=== PATIENT | female | born 1945 | race Caucasian/White ===

== ENCOUNTER 2020-09-21 09:14 | Emergency (ER) | payer MEDICARE, SELFPAY ==
[2020-09-21 09:25] VITALS: BP 146/81; PULSE 101; RESP 18; TEMP 36.5; O2SAT 95; BMI 28.8
--- NOTE | 2020-09-21 09:44 | ED.ABDPAIN ---
HPI - Abdominal Pain General Chief Complaint: Abdominal Pain Stated Complaint: abd pain Time Seen by Provider: 09/21/20 09:44 Source: patient Mode of arrival: ambulatory Limitations: no limitations History of Present Illness HPI narrative: patient with no significant past abdominal history no surgery in the past been having upper abdominal pain for last few months which is getting worse especially for last 3 4 days seen her PCP who started her on Protonix scheduled for ultrasound for last 24 hours pain is getting worse not able ED MD elicited complaint: abdominal pain Pertinent past history: none Onset (ago): month(s) Pain Consistency: intermittent Location: epigastric and RUQ Severity: moderate Quality: sharp Radiation: RUQ Exacerbating factors: eating Relieving factors: nothing Associated symptoms: nausea Related Data Previous Rx's Medication Instructions Recorded oxycodone 5 mg PO Q6H PRN #20 tab 09/21/20 Allergies Allergy/AdvReac Type Severity Reaction Status Date / Time No Known Allergies Allergy Verified 09/21/20 09:24 Review of Systems Review of Systems REVIEW OF SYSTEMS: Pertinent positives and negatives are stated above in the history. GEN: no fevers, chills, fatigue HEENT: no nasal congestion, sore throat, ear pain NEURO: no headache, dizziness, focal weakness PULM: no cough, shortness of breath CV: no chest pain, palpitations, LE edema ABD: no vomiting, diarrhea : no dysuria, urgency, frequency SKIN: no rash ROS otherwise negative x 10 Physical Exam Vital Signs: Vital Signs: Last Vital Signs Temp 97.7 F 09/21/20 14:00 Pulse 89 09/21/20 14:00 Resp 18 09/21/20 14:00 BP 133/62 09/21/20 14:00 Pulse Ox 99 09/21/20 14:00 Body Mass Index 28.8 Appearance: Alert. Oriented X3. No acute distress. Eyes: Pupils equal, round and reactive to light. ENT: Pharynx normal. Neck: Normal inspection. Neck supple. CVS: Normal heart rate and rhythm. Pulses normal. Respiratory: No respiratory distress. Breath sounds normal. Abdomen: Soft , tender in epigastric and right upper quadrant, bowel sounds are present no rebound tenderness or guarding no hernia palpable Skin: Skin warm and dry. Normal skin color. Normal skin turgor. Extremities: No lower extremity edema. Good range of movement Neuro: Oriented X 3. No motor deficit. No sensory deficit. Course Course Course Narrative: Patient labs are stable ultrasound is negative she never had any symptoms of gastritis in the past will do a CT scan to rule out any mass/pancreatic mass Reevaluation(s) Reevaluation #1: Patient's CT scan showed pancreatic mass with metastasis to liver. Patient advised to follow-up with oncologist MDM - Abdominal Pain MDM Narrative Medical decision making narrative: Patient with upper abdominal pain for last few months positive gastritis pancreatitis and gallstone was considered will do the ultrasound Differential Diagnosis Differential diagnosis: Likely pancreatitis and peptic ulcer disease Medical Records Attestation: I reviewed the patient's medical records. Lab Data Attestation: I reviewed the patient's lab results. Result diagrams: 09/21/20 10:10 09/21/20 10:10 Labs: Lab Results 09/21/20 09/21/20 09/21/20 Range/Units 10:10 10:10 10:10 WBC 6.1 (4.8-10.8) X10*3/uL RBC 4.59 (4.20-5.50) X10*6/uL Hgb 12.7 (12.0-16.0) g/dl Hct 38.7 (37-47) % MCV 84.3 (80-98) fL MCH 27.7 (27.0-33.0) pg MCHC 32.8 (31.0-35.0) g/dl RDW 11.9 (11.0-16.0) % Plt Count 212 (160-400) X10*3/uL MPV 9.4 (9.4-12.3) fL Immature Gran % (Auto) 0.3 (0.0-0.4) % Neut % (Auto) 73.8 H (45-73) % Lymph % (Auto) 12.9 L (20-40) % [place] % (Auto) 11.7 H (2-11) % Eos % (Auto) 1.0 (0-4) % Baso % (Auto) 0.3 (0-2) % Lymph # (Auto) 0.8 L (1.2-4.9) X10*3/uL [place] # (Auto) 0.7 (0.1-1.2) X10*3/uL Eos # (Auto) 0.1 (0.0-0.4) X10*3/uL Baso # (Auto) 0.0 (0.0-0.2) X10*3/uL Abs Immat Gran (auto) 0.02 (0.00-0.03) X10*3/uL Absolute Neuts (auto) 4.5 (2.0-8.3) X10*3/uL Absolute Nucleated RBC 0.000 (0.0-0.012) X10*3/uL Nucleated RBC % (auto) 0.0 (0.0-0.2) /100WBC PT 14.5 H (10.8-13.0) SEC INR 1.2 H (0.9-1.1) Sodium 136 (135-145) mmol/L Potassium 3.8 (3.3-5.1) mmol/l Chloride 100 (96-108) mmol/L Carbon Dioxide 26 (22-29) mmol/L Anion Gap 14 (12-20) BUN 13 (9-16) mg/dL Creatinine 0.76 (0.5-1.4) mg/dL Estim Creat Clear Calc 78.1 Estimated GFR > 60 Random Glucose 116 H (60-115) mg/dL Calcium 8.9 (8.4-10.2) mg/dL Total Bilirubin 0.7 (0.0-1.0) mg/dL AST 23 (5-31) U/L ALT 23 (0-31) U/L Alkaline Phosphatase 152 H (39-117) U/L Total Protein 6.8 (6.5-8.0) g/dL Albumin 3.6 (3.5-5.0) g/dL Lipase 14 (8-78) U/L Urine Color Urine Appearance Urine pH (5.0-8.0) Ur Specific [place] (1.005-1.025) Urine Protein (NEG-TRACE) MG/DL Urine Glucose (UA) (NEG) MG/DL Urine Ketones (NEG) MG/DL Urine Blood (NEG) Urine Nitrite (NEG) Ur Leukocyte Esterase (NEG) Urine RBC (0) /HPF Urine WBC (0-4) /HPF Ur Squamous Epith Cells /LPF Urine Bacteria /LPF Urine Mucus /LPF 09/21/20 Range/Units 10:10 WBC (4.8-10.8) X10*3/uL RBC (4.20-5.50) X10*6/uL Hgb (12.0-16.0) g/dl Hct (37-47) % MCV (80-98) fL MCH (27.0-33.0) pg MCHC (31.0-35.0) g/dl RDW (11.0-16.0) % Plt Count (160-400) X10*3/uL MPV (9.4-12.3) fL Immature Gran % (Auto) (0.0-0.4) % Neut % (Auto) (45-73) % Lymph % (Auto) (20-40) % [place] % (Auto) (2-11) % Eos % (Auto) (0-4) % Baso % (Auto) (0-2) % Lymph # (Auto) (1.2-4.9) X10*3/uL [place] # (Auto) (0.1-1.2) X10*3/uL Eos # (Auto) (0.0-0.4) X10*3/uL Baso # (Auto) (0.0-0.2) X10*3/uL Abs Immat Gran (auto) (0.00-0.03) X10*3/uL Absolute Neuts (auto) (2.0-8.3) X10*3/uL Absolute Nucleated RBC (0.0-0.012) X10*3/uL Nucleated RBC % (auto) (0.0-0.2) /100WBC PT (10.8-13.0) SEC INR (0.9-1.1) Sodium (135-145) mmol/L Potassium (3.3-5.1) mmol/l Chloride (96-108) mmol/L Carbon Dioxide (22-29) mmol/L Anion Gap (12-20) BUN (9-16) mg/dL Creatinine (0.5-1.4) mg/dL Estim Creat Clear Calc Estimated GFR Random Glucose (60-115) mg/dL Calcium (8.4-10.2) mg/dL Total Bilirubin (0.0-1.0) mg/dL AST (5-31) U/L ALT (0-31) U/L Alkaline Phosphatase (39-117) U/L Total Protein (6.5-8.0) g/dL Albumin (3.5-5.0) g/dL Lipase (8-78) U/L Urine Color YELLOW Urine Appearance HAZY Urine pH 5.5 (5.0-8.0) Ur Specific [place] >= 1.030 H (1.005-1.025) Urine Protein NEG (NEG-TRACE) MG/DL Urine Glucose (UA) NEG (NEG) MG/DL Urine Ketones 40 (NEG) MG/DL Urine Blood TRACE (NEG) Urine Nitrite NEG (NEG) Ur Leukocyte Esterase NEG (NEG) Urine RBC 0-2 (0) /HPF Urine WBC 0-2 (0-4) /HPF Ur Squamous Epith Cells 1+ /LPF Urine Bacteria NONE /LPF Urine Mucus 2+ /LPF Discharge Plan Discharge Clinical Impression: Cancer Patient Disposition: Home, Self-Care Instructions: Pancreatic Cancer (DC) Additional Instructions: Drink plenty of fluids, pain meds as adv and follow-up with oncologist Prescriptions: New oxycodone 5 mg tablet 5 mg PO Q6H PRN (Reason: pain) Qty: 20 RF: 0 Referrals: Georges Hillman MD [Physician] - 2 days Interventions: ED Discharge Assessment Last Done: 09/21/20 14:25 Discharge Date/Time: 09/21/20 14:26 [facility] Past Medical History Medical History Hyperlipemia Social History Social History Smoking Status: Never smoker Use of substances other than those prescribed or required for medical reasons: No Advance Directives: No Advance Directives Information Provided: No
--- NOTE | 2020-09-21 09:51 | US_ITS ---
EXAMINATION: US ABDOMEN LIMITED CLINICAL INFORMATION: Right upper quadrant pain. Question cholelithiasis.. COMPARISON: None TECHNIQUE: Real-time imaging of the right upper quadrant abdominal viscera. Examination limited secondary to overlying bowel gas. FINDINGS: PANCREAS: A majority of the pancreas is obscured by overlying bowel gas and therefore the pancreas is not accurately evaluated. LIVER: The liver is normal in size. The liver contour is normal. Parenchymal echogenicity is heterogeneous and there are a few suspected ill-defined and poorly visualized lesions within the liver, the largest measuring approximately 3 cm. There is no gross intrahepatic biliary duct dilatation seen. GALLBLADDER: Normal. The gallbladder is physiologically distended without evidence of stones, sludge, polyps, wall thickening or pericholecystic fluid. COMMON BILE DUCT: Normal in caliber measuring 0.8 cm in diameter. RIGHT KIDNEY: Normal. No hydronephrosis. No renal calculi or focal parenchymal lesions. The kidney measures 10.5 cm in maximum dimension. FREE FLUID: None. US/US abdomen limited IMPRESSION: -Examination limited secondary to overlying bowel gas. -Unremarkable sonographic imaging of the gallbladder. -Evaluation of the liver is suboptimal, however, there does appear to be a few focal heterogeneous masses superimposed upon heterogeneous background liver tissue. Further evaluation with MRI imaging without and with gadolinium is recommended to further evaluate these masses.
[2020-09-21] MEDS: 0.9 % Sodium Chloride 1,000 ML 999 ML IVCONT (10:18)
[2020-09-21] MEDS: Famotidine/PF 20 MG/2 ML VIAL IVPUSH (10:18)
[2020-09-21 10:24] LABS: Basophils Percent Auto 0.3 % (0-2); Eosinophils Absolute Auto 0.1 X10*3/uL (0.0-0.4); Hematocrit 38.7 % (37-47); Hemoglobin 12.7 g/dl (12.0-16.0); Imm Gran Abs Auto 0.02 X10*3/uL (0.00-0.03); Imm Gran Pct Auto 0.3 % (0.0-0.4); Lymphocytes Absolute Auto 0.8 X10*3/uL (1.2-4.9); Lymphocytes Percent Auto 12.9 % (20-40); MANUAL DIFF FLAG NO; Mean Corpuscular HGB Conc 32.8 g/dl (31.0-35.0); Mean Corpuscular Hemoglobin 27.7 pg (27.0-33.0); Mean Corpuscular Volume 84.3 fL (80-98); Mean Platelet Volume 9.4 fL (9.4-12.3); Monocytes Absolute Auto 0.7 X10*3/uL (0.1-1.2); Monocytes Percent Auto 11.7 % (2-11); Neutrophils Absolute Auto 4.5 X10*3/uL (2.0-8.3); Neutrophils Percent Auto 73.8 % (45-73); Platelet Count 212 X10*3/uL (160-400); Red Blood Count 4.59 X10*6/uL (4.20-5.50); Red Cell Distribution Width 11.9 % (11.0-16.0); White Blood Count 6.1 X10*3/uL (4.8-10.8)
[2020-09-21 10:30] LABS: Glucose Urine UA NEG (NEG); INTERNATIONAL NORM RATIO 1.2 (0.9-1.1); Leukocyte Esterase Urine NEG (NEG); Nitrite Urine NEG (NEG); PH 5.5 (5.0-8.0); Prothrombin Time 14.5 SEC (10.8-13.0); Specific Gravity - Urine >= 1.030 (1.005-1.025); Urine Blood TRACE (NEG); Urine Ketones 40 MG/DL (NEG); Urine Protein NEG (NEG-TRACE)
[2020-09-21 10:32] LABS: Appearance Urine HAZY; Color Urine YELLOW
[2020-09-21 10:59] LABS: Alanine Aminotransferase 23 U/L (0-31); Albumin Level 3.6 g/dL (3.5-5.0); Alkaline Phosphatase 152 U/L (39-117); Anion Gap 14 (12-20); Aspartate Amino Transferase 23 U/L (5-31); Bilirubin Total 0.7 mg/dL (0.0-1.0); Blood Urea Nitrogen 13 mg/dL (9-16); Calcium 8.9 mg/dL (8.4-10.2); Carbon Dioxide 26 mmol/L (22-29); Chloride 100 mmol/L (96-108); Creatinine Clr Calc Pharmacy 78.1; Estimated Glomerular Filt Rate > 60; Glucose Random 116 mg/dL (60-115); Lipase 14 U/L (8-78); Potassium 3.8 mmol/l (3.3-5.1); Sodium 136 mmol/L (135-145); Total Protein 6.8 g/dL (6.5-8.0)
[2020-09-21 11:01] LABS: Mucus Urine 2+ /LPF; RBC Urine 0-2 /HPF (0); Squamous Epithelial Cell Urine 1+ /LPF; WBC Urine 0-2 /HPF (0-4)
[2020-09-21 11:17] VITALS: BP 140/65; PULSE 80; RESP 16; O2SAT 95
[2020-09-21] MEDS: ondansetron HCL 4 MG/2 ML VIAL IVPUSH (11:17)
[2020-09-21] MEDS: Morphine Sulfate 4 MG/ML CARTRIDGE 2 MG IVPUSH (11:17)
--- NOTE | 2020-09-21 12:00 | PC.NURSE ---
pt triaged c/o epigastric pain ongoing for a few months, worsened over past week or so. shceduled for ultrasound later this wk but could not tolerate pain, avoiding food as a result. denies any other gi sxs, denies fevers, denies chest pain, sob. all specimens collected.
--- NOTE | 2020-09-21 12:01 | ECG_ITS ---
Test Reason : ABDOMINAL PAIN Blood Pressure : / mmHG Vent. Rate : 074 BPM Atrial Rate : 074 BPM P-R Int : 144 ms QRS Dur : 086 ms QT Int : 382 ms P-R-T Axes : 051 034 040 degrees QTc Int : 424 ms Normal sinus rhythm Low voltage QRS Borderline ECG When compared with ECG of 31-JUL-2014 07:08, No significant change was found Referred By: Soren Ventura Electronically Signed By:ISABELLA MONGE
--- NOTE | 2020-09-21 12:02 | CT_ITS ---
EXAMINATION: CT ABDOMEN AND PELVIS WITH CONTRAST CLINICAL INFORMATION: Mid abdominal pain COMPARISON: Ultrasound abdomen limited 09/21/2020 TECHNIQUE: Multidetector volumetric images were obtained from the superior aspect of the liver through the pubic symphysis following administration 85 mL of Omnipaque 350 intravenous contrast. Sagittal and coronal reformatted images were obtained on the technologist's workstation. Oral contrast: No This CT examination was performed using dose optimization techniques as appropriate, variously including the following: *Automated exposure control *Adjustment of mA and/or kV according to patient size (this includes techniques or standardized protocols for targeted exams where dose is matched to indication/reason for exam; i.e. extremities or head) *Use of iterative reconstruction technique DLP: 684 mGy-cm FINDINGS: LUNG BASES: The visualized lung bases are unremarkable. LIVER, GALLBLADDER, AND BILIARY TREE: The liver is normal in size, shape, and attenuation. There are multiple hypodense liver lesions suggestive of metastatic disease. The largest lesion left hepatic lobe measures 5.8 x 4.4 cm. The gallbladder is unremarkable with no evidence of radiopaque gallstones, gallbladder wall thickening, or obvious pericholecystic inflammatory changes. PANCREAS: There is large hypodense mass arising from the tail and distal body of pancreas. It measures 6.7 x 4.6 x 6.1 cm. SPLEEN: Unremarkable. ADRENAL GLANDS: The adrenal glands are unremarkable. KIDNEYS AND URETERS: The kidneys are normal in size, shape, and attenuation. No hydronephrosis, hydroureter, or calculi seen. No perinephric stranding. There are small peripelvic cysts. BLADDER: Unremarkable. GASTROINTESTINAL TRACT: There is scattered stool, gas and diverticula seen throughout the colon without obstruction. The small bowel loops are normal caliber. Appendix is normal. The stomach is nondistended. ABDOMINAL WALL: No significant hernia is appreciated. LYMPH NODES: There is left para-aortic abnormal lymph node in the midabdomen measuring 1.4 x 1.6 cm on axial image 32/2. There are numerous lymph nodes in the yamileth hepatis and adjacent to peripancreatic head with some of the largest lymph nodes measuring 1.9 x 2.1 cm axial image 23/2. VASCULAR: Unremarkable. PELVIC VISCERA: The uterus is anteverted with coarse calcification consistent with a moderate-sized fibroid in the posterior uterus. OSSEOUS STRUCTURES: There is L4 and L5 bony fusion. There are degenerative disc changes and vacuum disc phenomena and spondylosis throughout the spine. No lytic process. No fracture. CT/CT abdomen pelvis w con IMPRESSION: Large mass in the tail of the pancreas with multiple metastasis in liver and periportal and peripancreatic and retroperitoneal lymphadenopathy. Sigmoid and rest of colon diagnosis without diverticulitis. Calcified uterine fibroid.
[2020-09-21] MEDS: iohexoL 350 MG/ML 100 ML INFUS..BTL 85 ML IV (13:02)
[2020-09-21 13:12] VITALS: BP 123/61; PULSE 85; RESP 16; O2SAT 98
--- NOTE | 2020-09-21 13:15 | PC.NURSE ---
pt reporting pain briefly relieved by MOP given earlier, pain now returning. awaiting ct results. NSR on monitor, VS WNL. Resp even and nonlaboured, speaking in clear full sentences.
[2020-09-21 14:00] VITALS: BP 133/62; PULSE 89; RESP 18; TEMP 36.5; O2SAT 99
== END 2020-09-21 14:26 | disposition home or self-care (01) ==
PROVIDERS: Emergency Provider Internal Medicine; PCP Nurse Practitioner Family
DX: C25.9 Malignant neoplasm of pancreas, unspecified (principal); R10.11 Right upper quadrant pain; R10.13 Epigastric pain; Z79.899 Other long term (current) drug therapy
CPT/HCPCS: 36415; 74177; 76705; 80053; 81001; 83690; 85025; 85610; 93005; 96361; 96374; 96375; 99284; J2270; J2405; Q9967

== ENCOUNTER 2020-10-03 08:03 | Day surgery (SDC) | payer MEDICARE, SELFPAY ==
[2020-10-02 12:42] VITALS: BMI 29.4
[2020-10-03] VITALS (8 sets, daily range): BP systolic 106–134; BP diastolic 55–70; PULSE 74–90; RESP 18; TEMP 36.1–36.2; O2SAT 95–97; BMI 28.0
--- NOTE | 2020-10-03 10:51 | CT_ITS ---
PROCEDURE: CT GUIDED BIOPSY, LIVER CLINICAL INFORMATION: Pancreatic mass COMPARISON: Previous CT of the abdomen and pelvis and abdominal ultrasound 09/21/2020 TECHNIQUE: Procedure and risks and benefits including bleeding, infection and injury to adjacent organs was estimated and the patient and informed consent was obtained. The patient was positioned in the supine position. Limited axial images through the upper abdomen were performed. The upper midline abdomen was prepped and draped in the usual sterile fashion. The skin and soft tissues were anesthetized percent lidocaine plain. She guidance and a coaxial system, access to the lesion in the lateral segment left lobe of the liver was obtained. 3 20-gauge core biopsies were obtained. There is no complication. The patient received Versed 1.5 mg and fentanyl 75 mcg intravenously during the procedure. Total sedation time was [address] examination was performed using dose optimization techniques as appropriate, variously including the following: *Automated exposure control *Adjustment of mA and/or kV according to patient size (this includes techniques or standardized protocols for targeted exams where dose is matched to indication/reason for exam; i.e. extremities or head) *Use of iterative reconstruction technique DLP: 125 mGy-cm FINDINGS: There are multiple liver lesions. A 5 cm lesion in the lateral segment of the left lobe of the liver was targeted for biopsy. Mass in the body and tail of the pancreas appears unchanged. There are varices. CT/CT biopsy liver IMPRESSION: CT-guided liver biopsy.
[2020-10-03] MEDS: Lidocaine HCl 1 % MPF 5 ML VIAL 10 ML SUBCUT (11:40)
--- NOTE | 2020-10-03 11:40 | HO.RADPN ---
RADIOLOGY Narrative Narrative: CT guided left lobe of liver biopsy performed using coaxial system. 3 20 g core biopsies obtained. no complication.
== END 2020-10-03 14:00 | disposition home or self-care (01) ==
PROVIDERS: Radiology Diagnostic Radiology; PCP Nurse Practitioner Family; Visit Provider Internal Medicine Medical Oncology
DX: C25.9 Malignant neoplasm of pancreas, unspecified (principal); C78.7 Secondary malignant neoplasm of liver and intrahepatic bile duct
CPT/HCPCS: 47000; 77012; 88307; 88341; 88342; 99152; 99153; J2250; J3010

== ENCOUNTER 2020-11-27 13:39 | Outpatient (REF) | payer MEDICARE, SELFPAY ==
--- NOTE | ~2020-11-27 | US_ITS ---
EXAMINATION: US ABDOMEN LIMITED CLINICAL INFORMATION: Bloating. Check for ascites. COMPARISON: CT abdomen and pelvis and ultrasound abdomen limited 09/21/2020. TECHNIQUE: Limited 4 quadrant abdominal ultrasound FINDINGS: There is a [id number] amount of ascites. US/US abdomen limited IMPRESSION: Small to moderate amount of ascites.
== END 2020-11-27 13:40 | disposition home or self-care (01) ==
LOC: HO.US 13:39
PROVIDERS: Visit Provider Internal Medicine Medical Oncology
DX: R18.8 Other ascites (principal); R14.0 Abdominal distension (gaseous)
CPT/HCPCS: 76705

== ENCOUNTER 2021-01-23 08:33 | Outpatient (REF) | payer MEDICARE, SELFPAY ==
--- NOTE | ~2021-01-23 | CT_ITS ---
EXAMINATION: CT ABDOMEN AND PELVIS WITHOUT AND WITH CONTRAST CLINICAL INFORMATION: Follow-up on pancreatic cancer COMPARISON: CT 09/21/2020 TECHNIQUE: Multidetector volumetric imaging was performed of the abdomen and pelvis before and after the IV administration of 85 mL of Omnipaque 300 intravenous contrast. Sagittal and coronal reformatted images were obtained on the technologist's workstation. This CT examination was performed using dose optimization techniques as appropriate, variously including the following: *Automated exposure control *Adjustment of mA and/or kV according to patient size (this includes techniques or standardized protocols for targeted exams where dose is matched to indication/reason for exam; i.e. extremities or head) *Use of iterative reconstruction technique DLP: 666 mGy-cm FINDINGS: LUNG BASES: There is increased atelectasis at the lung bases. There are numerous new pulmonary nodules concerning for metastatic disease. These are seen predominantly in the posterior lung bases, for example 6 mm in the right lateral costophrenic sulcus and 6 mm in the posterior aspect of the left lower lobe. LIVER, GALLBLADDER, AND BILIARY TREE: Previously seen hepatic metastatic disease has progressed. Previously seen metastasis are increased in size and there are new metastases as well. In the right for example in the right lobe of the liver near the dome there is a 3.2 x 2.8 cm lesion that previously measured 1.5 x 1.9 cm. In the left lobe of the liver in image 69/253 there is a 6.3 x 4.9 cm lesion that previously measured 5.9 x 5.2 cm. In segment 5, anterior aspect of the inferior right lobe of the liver 0.7 x 2.5 cm lesion previously measured 1.4 x 1.8 cm. The gallbladder is distended but there is no gallbladder wall thickening. There is new mild intrahepatic biliary ductal dilatation, right greater than left. The portal veins enhance normally. PANCREAS: There is worsened abnormality within the pancreas. The body and tail of the pancreas are atrophic replaced by a cystic or necrotic nonenhancing fluid collection that measures 5.5 x 5.3 cm, previously 6.5 x 5.3 cm. There is a new 2.8 x 1.6 cm hypoenhancing mass in the neck-body junction of the pancreas. There is extensive abnormal peripherally enhancing, centrally low density soft tissue in the region of the pancreatic head and yamileth hepatis. This most likely represents necrotic lymphadenopathy. There is confluent cystic or necrotic portacaval lymphadenopathy that measures 5.6 x 3.6 cm, previously 4.0 x 1.6 cm. 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 There are anterior abdominal varices. There are splenic, esophageal, and gastric varices. SPLEEN: There is heterogeneous enhancement of the spleen presumably altered perfusion to the suspected occlusion of the splenic artery with perfusion of the spleen. Collaterals. ADRENAL GLANDS: The left adrenal gland is inseparable from the pancreatic abnormality, presumably involved by direct invasion. The right adrenal gland is normal. KIDNEYS AND URETERS: The kidneys are normal in size, shape, and attenuation. No hydronephrosis, hydroureter, or calculi seen. No perinephric stranding. BLADDER: Unremarkable GASTROINTESTINAL TRACT: Stomach is partially distended. Small bowel is nondilated. There is colonic diverticulosis without evidence of colitis or diverticulitis. ABDOMINAL WALL: Small fat-containing umbilical hernia. LYMPH NODES: Worsened retroperitoneal lymphadenopathy. For example a 2.0 x 1.5 cm left para-aortic lymph node is essentially new from the prior study. Numerous left periaortic lymph nodes are seen at the level of the left renal vein the largest measuring 1.6 x 1.5 cm in image 103/253. There is confluent cystic or necrotic periportal and peripancreatic lymphadenopathy described above. VASCULAR: Normal caliber abdominal aorta. Inferior vena cava is flattened by lymphadenopathy but it opacifies normally. There is a small amount of thrombus in the superior mesenteric vein for example image 100/253. This does not extend into the portal vein. The splenic vein is nonvisualized, as described above, presumably chronically occluded with varices/collaterals. PELVIC VISCERA: There are calcified leiomyomas the largest seen posteriorly 3.5 cm in diameter. Moderate volume of ascites is present, new from the prior study. OSSEOUS STRUCTURES: Multilevel degenerative changes. There is fusion of L4-L5 with complete loss of the disc space and the suggestion of prior posterior decompression at L5.. Multilevel degenerative disc disease throughout the lumbar spine with vacuum disc phenomenon and facet arthropathy. CT/CT abdomen pelvis wo/w con IMPRESSION: Findings of disease progression including suspected pulmonary metastatic disease, new/worsened hepatic metastases, and new and worsened retroperitoneal, periportal, and peripancreatic lymphadenopathy. Although the abnormality of the body and tail of the pancreas measures slightly smaller than on the prior study, there is a new abnormality in the neck-body junction of the pancreas consistent with worsening disease. 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
== END 2021-01-23 08:34 | disposition home or self-care (01) ==
LOC: HO.CT 08:33
PROVIDERS: Visit Provider Internal Medicine Medical Oncology
DX: C25.9 Malignant neoplasm of pancreas, unspecified (principal); C78.7 Secondary malignant neoplasm of liver and intrahepatic bile duct
CPT/HCPCS: 74178; Q9967

== ENCOUNTER 2021-01-29 10:00 | Outpatient (RCR) | payer MEDICARE, SELFPAY ==
[2020-09-23 11:26] VITALS: BP 121/66; PULSE 93; RESP 12; TEMP 36.8; O2SAT 94; BMI 29.4
--- NOTE | 2020-09-23 12:17 | P.CNHO_ITS ---
Subjective - Subjective Chief complaint: Consult for Stage IV Pancreatic Carcinoma. Patient: new to practice Consult date: 09/23/20 Requesting Physician: [place]. Primary Care Provider: Ann Valencia NP Medical Summary: DIAGNOSIS; PANCREATIC CA WITH LIVER METS & RETROPERITONEAL ADENOPATHY. HPI - Consult Narrative Reason for consult: PANCREATIC CANCER. Narrative: Emerald Molina is a pleasant 74 year old lady, who noted abdominal pain back in February. Ultrasound of abdomen from 09/21: -Examination limited secondary to overlying bowel gas. -Unremarkable sonographic imaging of the gallbladder. -Evaluation of the liver is suboptimal, however, there does appear to be a few focal heterogeneous masses superimposed upon heterogeneous background liver tissue. Further evaluation with MRI imaging without and with gadolinium is recommended to further evaluate these masses. Cat scan of abdomen from 09/21: IMPRESSION: Large mass in the tail of the pancreas with multiple metastasis in liver and periportal and peripancreatic and retroperitoneal lymphadenopathy. Sigmoid and rest of colon diagnosis without diverticulitis. Calcified uterine fibroid. She was presribed Oxycodone, 5 mg. She still has pain, 8 on 1-10 scale, it does get better with the oxycodone. She is using it sparingly, 3 times a day. Review of Systems - Constitutional Reports system reviewed and no additional complaints, except as documented, Repo rts anorexia, Reports fatigue, Reports lack of energy, Reports malaise, Reports poor appetite, Reports weakness, Reports weight loss, Denies fever(s), Denies night sweats - Eyes Reports system reviewed and no additional complaints, except as documented - ENT Reports system reviewed and no additional complaints, except as documented - Cardiovascular Reports system reviewed and no additional complaints, except as documented - Respiratory Reports no additional respiratory complaints - Gastrointestinal Reports system reviewed and no additional complaints, except as documented, Reports abdominal pain, Reports belching, Reports bloating, Reports excessive passing of gas, Reports nausea, Denies bright, red blood in stools, Denies change in bowel habits, Denies difficulty swallowing, Denies diarrhea - Genitourinary Reports no additional female genitourinary complaints - Musculoskeletal Reports system reviewed and no additional complaints, except as documented - Integumentary/Breasts Skin/Breast: Reports no additional skin complaints, Reports itching - Neurologic Reports system reviewed and no additional complaints, except as documented, Reports weakness - Psychiatric Reports system reviewed and no additional complaints, except as documented, Reports depression - Endocrine Reports no additional endocrine complaints [facility] Medical History: Medical History (Last Reviewed 09/21/20 @ 10:39 by Soren Ventura MD) Hyperlipemia Functional capacity: independent ambulation Patient : No Family History: Family History (Last Updated 09/23/20 @ 11:30 by Rebecca Johns) Mother Lung cancer Surgical History: Surgical History (Last Updated 09/23/20 @ 11:29 by Rebecca Johns) History of back surgery Smoking status: Never smoker Home Medications and Allergies Home Medications Medication Instructions Recorded Confirmed Type atorvastatin 1 tab PO DAILY 09/23/20 09/23/20 History pantoprazole 1 tab PO DAILY 09/23/20 09/23/20 History sucralfate 1 tab PO QID 09/23/20 09/23/20 History Allergies Allergy/AdvReac Type Severity Reaction Status Date / Time No Known Allergies Allergy Verified 09/21/20 09:24 Physical Exam Vital signs: Vital Signs Temp 98.3 F 09/23/20 11:26 Pulse 93 09/23/20 11:26 Resp 12 09/23/20 11:26 BP 121/66 09/23/20 11:26 Pulse Ox 94 09/23/20 11:26 Intake & Output 09/22/20 09/23/20 09/23/20 18:59 06:59 18:59 Other: Weight 90.3 kg Weight 90.3 kg - Constitutional Present: mild distress. Absent: no acute distress - Routine HEENT Exam Head: Present: normal inspection ENT: Present: mucous membranes moist - Routine Neck Exam Present: supple - Routine Respiratory Exam Present: CTAB - Routine Cardiovascular Exam Cardiovascular: Present: S1, S2 - Routine Abdominal Exam Present: firm, tenderness - Routine Rectal Exam Patient deferred: digital exam - Routine Extremities Exam Present: nontender - Routine Skin Exam Present: intact - Routine Neurological Exam Present: alert, oriented X3 - Detailed Neurological Exam: Coma Scale Eye Opening: Spontaneous (4) Verbal Response: Oriented (5) Motor Response: Obeys commands (6) Bee Coma Scale Total: 15 - Routine Psychiatric Exam Present: depressed Assessment and Plan (1) Pancreatic carcinoma metastatic to liver Status: Acute This is a pleasant unfortunate 74 year old lady with a recent diagnosis of a Pancreatic mass, adenopathy and Liver Lesions. IMPRESSION: Large mass in the tail of the pancreas with multiple metastasis in liver and periportal and peripancreatic and retroperitoneal lymphadenopathy. Sigmoid and rest of colon diagnosis without diverticulitis. Calcified uterine fibroid. She is still in pain. Oxycodone is helping. I went over the suspected diagnosis, the fact that she has stage IV disease and the guarded prognosis, with her and her . Addressed the need for a biopsy, to confirm the diagnosis. Discussed the role of palliative chemotherapy. PLAN: Will proceed with a biopsy of one of the liver lesions, for confirmation. Will then consider systemic chemotherapy. She is inclined towards chemotherapy but would still like to maintain a reasonable QOL. Thanks, CC: Ann Valencia.
--- NOTE | 2020-09-23 14:05 | MHC.HEMONCSW ---
PATIENT IS A 74 YEAR OLD FEMALE. ACCOMPANIED BY HER , THEY APPEAR TO BE VERY CLOSE. DIAGNOSIS IS STAGE 4 PANCREATIC CANCER WITH LIVER METASTASES. PATIENT AND QUITE EMOTIONAL SO FULL PSYCHOSOCIAL ASSESSMENT NOT DONE....WILL COMPLETE LATER. HEALTH CARE PROXY COMPLETED, NAMED . HAS 2 GROWN CHILDREN AND AN 11 YEAR OLD AUTISTIC GRANDSON. PATIENT HAS BEEN RETIRED AND IN GOOD HEALTH UNTIL THIS INCIDENT. 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 MULTIPLE STRESSORS, CARING FOR HER 90 YEAR OLD FATHER WITH ALZHEIMERS, BEING IN CHARGE OF HIS FINANCES AND CARE ETC ALLOWED PATIENT TO TALK, VENT AND CRY. RESPONDED WITH UNCONDITIONAL POSITIVE REGARD. EDUCATION, GUIDANCE AND SUPPORT ROVIDED. PLAN; BIOPSY AND PALLIATIVE CHEMOTHERAPY. NO SERVICES AT THIS TIME, SHE IS INDEPENDENT.
[2020-09-25 13:12] LABS: Carbohydrate Antigen 19-9 2636 U/mL (<34)
--- NOTE | 2020-09-29 10:20 | MHC.HEMONC ---
CT GUIDED BX IN PENDING (IR- REVIEW) STATUS FOR BOOKING. RADIOLOGY WILL CALL WITH APPT DATE & TIME
--- NOTE | 2020-09-30 11:37 | MHC.HEMONCSW ---
PER NAYAN IN XRAY, THEIR NURSE SCHEDULED PATIENT FOR CT GUIDED BX FOR 10/06/20 AT 12:30PM.
--- NOTE | 2020-09-30 13:30 | MHC.HEMONC ---
CT GUIDED BX - Spoke w [facility] and asked if we could move Mrs. Molina's CT Scan up from the . She was able to get her scheduled this Tuesday. APPT CT GUIDED BX OF THE LIVER w Dr. De Oliveira scheduled for this SATURDAY OCTOBER 03, 2020 @ 1030 am. SARAH HAYS'S informed and agrees to this appt. I told him to anticipate a call from the Interventional Radiology nurse for furthe instructions re: Pre-procedure questions and NPO orders . Gallo's number is [phone].
--- NOTE | 2020-10-02 14:01 | MHC.HEMONCMA ---
Patient's called in for a refill on her oxycodone 5mg, he also was wondering if Emerald could get a longer acting narcotic to help with the pain. I let him know that i would speak with Dr Hillman about this. I spoke with Dr Hillman and she states that she is ok with refilling the oxycodone 5mg and giving her a longer acting narcotic. She sent them electronically. I called the patient to let her know that Dr Hillman sent both prescriptions to her pharmacy, Emerald states that [facility] just called stating that the morphine will need a PA, I let her know that we have not recieved anything yet, but we will be on the look out. She is ok with this plan.
--- NOTE | 2020-10-02 14:40 | MHC.HEMONCSW ---
A# [id number] FOR MS 30MG ER TABS. OBTAINED THIS FROM [facility]. 09/02/20 TO 10/02/21 NOTIFIED PHARMACY AND .
--- NOTE | 2020-10-09 15:51 | MHC.HEMONC ---
Pt called wanting to review his 's pain medication schedule as she is still having abdominal pain. Apparently she only has been taking MS Contin at bedtime and so I told them she must take it as ordered every 12 hr and use the oxycodone for breakthrough pain every 4-6 hr as ordered and let us know if it is improved. I told them it may take a couple of days for the additional MS Contin to help with pain control.
[2020-10-13 09:50] LABS: Basophils Percent Auto 0.3 % (0-2); Hemoglobin 12.1 g/dl (12.0-16.0); Imm Gran Pct Auto 0.4 % (0.0-0.4); MANUAL DIFF FLAG SCAN; Mean Platelet Volume 9.7 fL (9.4-12.3); PLT CLUMP 1; SCAN SMEAR FLAG 1
[2020-10-13 09:52] LABS: Eosinophils Percent Auto 0.4 % (0-4); Hematocrit 38.6 % (37-47); Imm Gran Abs Auto 0.04 X10*3/uL (0.00-0.03); Lymphocytes Absolute Auto 0.7 X10*3/uL (1.2-4.9); Lymphocytes Percent Auto 6.2 % (20-40); Mean Corpuscular HGB Conc 31.3 g/dl (31.0-35.0); Mean Corpuscular Hemoglobin 26.7 pg (27.0-33.0); Monocytes Absolute Auto 1.1 X10*3/uL (0.1-1.2); Monocytes Percent Auto 10.1 % (2-11); Neutrophils Absolute Auto 9.3 X10*3/uL (2.0-8.3); Neutrophils Percent Auto 82.6 % (45-73); Platelet Count 330 X10*3/uL (160-400); Red Blood Count 4.54 X10*6/uL (4.20-5.50); White Blood Count 11.2 X10*3/uL (4.8-10.8)
[2020-10-13 09:54] VITALS: BP 111/61; PULSE 110; RESP 20; TEMP 36.1; O2SAT 96; BMI 28.7
[2020-10-13 10:21] LABS: Alanine Aminotransferase 49 U/L (0-31); Albumin Level 3.2 g/dL (3.5-5.0); Alkaline Phosphatase 220 U/L (39-117); Anion Gap 15 (12-20); Aspartate Amino Transferase 49 U/L (5-31); Bilirubin Total 0.9 mg/dL (0.0-1.0); Blood Urea Nitrogen 9 mg/dL (9-16); Calcium 8.8 mg/dL (8.4-10.2); Carbon Dioxide 28 mmol/L (22-29); Chloride 99 mmol/L (96-108); Creatinine Clr Calc Pharmacy 87.2; Estimated Glomerular Filt Rate > 60; Glucose Random 124 mg/dL (60-115); Potassium 3.8 mmol/l (3.3-5.1); Sodium 138 mmol/L (135-145); Total Protein 6.5 g/dL (6.5-8.0)
--- NOTE | 2020-10-13 10:52 | MHC.HEMONCSW ---
ALBERTO, NO PA REQUIRED PER OLIVIA AT [facility]. REFERENCE# [id number].
--- NOTE | 2020-10-13 11:32 | MHC.HEMONC ---
Patient here for follow-up. Patient summary updated with nurse. Provider seen patient. Chemo navigation flow sheet started,
--- NOTE | 2020-10-13 14:05 | PM.HEMONCPN ---
Medical Summary - Medical Summary Date of Service: 10/13/20 Chief complaint: Follow-up for pancreatic carcinoma with liver metastases. Medical Summary: DIAGNOSIS; PANCREATIC CA WITH LIVER METS & RETROPERITONEAL ADENOPATHY. Biopsy of the liver lesion from 10/03. Pathology revealed: Metastatic adenocarcinoma, consistent with pancreatic primary. CK7 positive CK 20- negative. Interval History Interval history: Emerald Molina is a pleasant 74 year old lady, who noted abdominal pain back in February. Ultrasound of abdomen from 09/21: -Examination limited secondary to overlying bowel gas. -Unremarkable sonographic imaging of the gallbladder. -Evaluation of the liver is suboptimal, however, there does appear to be a few focal heterogeneous masses superimposed upon heterogeneous background liver tissue. Further evaluation with MRI imaging without and with gadolinium is recommended to further evaluate these masses. Cat scan of abdomen from 09/21: IMPRESSION: Large mass in the tail of the pancreas with multiple metastasis in liver and periportal and peripancreatic and retroperitoneal lymphadenopathy. Sigmoid and rest of colon diagnosis without diverticulitis. Calcified uterine fibroid. Biopsy of the liver lesion from 10/03 revealed: Metastatic adenocarcinoma consistent with pancreatic primary. She is here for a follow-up visit. She does not feel too well. She was presribed Oxycodone, 5 mg. She still had pain, 8 on 1-10 scale, it does get better with the oxycodone. She is using it sparingly, 3 times a day. Morphine was added for long-acting pain control. She has noticed that she feels sweaty, sometimes. She has been quite constipated. She has not had a bowel movement for 5 days. The stool is there but feels rather hard. That is not comfortable. She has some abdominal cramping. Nausea but no vomiting. She has occasional heartburn. She denies gross blood in the stools. Energy level is low. No fever nor chills. Her spirits are down. Rest of the review of systems is unremarkable. Review of Systems - Constitutional Reports system reviewed and no additional complaints, except as documented, Reports anorexia, Reports fatigue, Denies fever(s) - Eyes Reports system reviewed and no additional complaints, except as documented - ENT Reports system reviewed and no additional complaints, except as documented - Cardiovascular Reports system reviewed and no additional complaints, except as documented - Respiratory Reports no additional respiratory complaints - Gastrointestinal Reports system reviewed and no additional complaints, except as documented, Reports abdominal pain, Reports constipation - Genitourinary Reports no additional female genitourinary complaints - Musculoskeletal Reports system reviewed and no additional complaints, except as documented - Integumentary/Breasts Skin/Breast: Reports no additional skin complaints - Neurologic Reports system reviewed and no additional complaints, except as documented, Reports weakness - Psychiatric Reports system reviewed and no additional complaints, except as documented - Endocrine Reports no additional endocrine complaints - Hematologic/Lymphatic Reports system reviewed and no additional complaints, except as documented - Allergic/Immunologic Reports system reviewed and no additional complaints, except as documented PMFSH Medical History: Medical History (Last Reviewed 09/21/20 @ 10:39 by Soren Ventura MD) Hyperlipemia Functional capacity: independent ambulation Patient : No Family History: Family History (Last Updated 09/23/20 @ 11:30 by Rebecca Johns) Mother Lung cancer Surgical History: Surgical History (Last Updated 09/23/20 @ 11:29 by Rebecca Johns) History of back surgery Smoking status: Never smoker Home Medications and Allergies Home Medications Medication Instructions Recorded Confirmed Type atorvastatin 1 tab PO DAILY 09/23/20 09/23/20 History Allergies Allergy/AdvReac Type Severity Reaction Status Date / Time No Known Allergies Allergy Verified 09/21/20 09:24 Exam Vital signs: Vital Signs Temp 96.9 F 10/13/20 09:54 Pulse 110 H 10/13/20 09:54 Resp 20 10/13/20 09:54 BP 111/61 10/13/20 09:54 Pulse Ox 96 10/13/20 09:54 Intake & Output 10/12/20 10/13/20 10/13/20 18:59 06:59 18:59 Other: Weight 88.3 kg Weight 88.3 kg Body Mass Index 28.7 - Constitutional Present: mild distress. Absent: no acute distress - Routine HEENT Exam Head: Present: normal inspection - Routine Respiratory Exam Present: CTAB - Routine Cardiovascular Exam Cardiovascular: Present: S1, S2 - Routine Abdominal Exam Present: firm, tenderness - Routine Rectal Exam Patient deferred: digital exam - Routine Extremities Exam Present: nontender - Routine Skin Exam Present: intact - Routine Neurological Exam Present: alert, oriented X3 - Detailed Neurological Exam: Coma Scale Eye Opening: Spontaneous (4) Data - Labs CBC & Chem 7: 10/13/20 09:37 10/13/20 09:37 Labs: 09/22/20 10:10 Carbohydrate Antigen 19-9 Routine 09/23/20 12:30 Add Laboratory Test Routine 10/13/20 09:37 CMP [Comprehensive Met. Panel] Routine Laboratory Last Values WBC 11.2 X10*3/uL (4.8-10.8) H 10/13/20 09:37 RBC 4.54 X10*6/uL (4.20-5.50) 10/13/20 09:37 Hgb 12.1 g/dl (12.0-16.0) 10/13/20 09:37 Hct 38.6 % (37-47) 10/13/20 09:37 MCV 85.0 fL (80-98) 10/13/20 09:37 MCH 26.7 pg (27.0-33.0) L 10/13/20 09:37 MCHC 31.3 g/dl (31.0-35.0) 10/13/20 09:37 RDW 12.0 % (11.0-16.0) 10/13/20 09:37 Plt Count 330 X10*3/uL (160-400) D 10/13/20 09:37 MPV 9.7 fL (9.4-12.3) 10/13/20 09:37 Immature Gran % (Auto) 0.4 % (0.0-0.4) 10/13/20 09:37 Neut % (Auto) 82.6 % (45-73) H 10/13/20 09:37 Lymph % (Auto) 6.2 % (20-40) L 10/13/20 09:37 [place] % (Auto) 10.1 % (2-11) 10/13/20 09:37 Eos % (Auto) 0.4 % (0-4) 10/13/20 09:37 Baso % (Auto) 0.3 % (0-2) 10/13/20 09:37 Lymph # (Auto) 0.7 X10*3/uL (1.2-4.9) L 10/13/20 09:37 [place] # (Auto) 1.1 X10*3/uL (0.1-1.2) 10/13/20 09:37 Eos # (Auto) 0.0 X10*3/uL (0.0-0.4) 10/13/20 09:37 Baso # (Auto) 0.0 X10*3/uL (0.0-0.2) 10/13/20 09:37 Abs Immat Gran (auto) 0.04 X10*3/uL (0.00-0.03) H 10/13/20 09:37 Absolute Neuts (auto) 9.3 X10*3/uL (2.0-8.3) H 10/13/20 09:37 Absolute Nucleated RBC 0.000 X10*3/uL (0.0-0.012) 10/13/20 09:37 Nucleated RBC % (auto) 0.0 /100WBC (0.0-0.2) 10/13/20 09:37 Sodium 138 mmol/L (135-145) 10/13/20 09:37 Potassium 3.8 mmol/l (3.3-5.1) 10/13/20 09:37 Chloride 99 mmol/L (96-108) 10/13/20 09:37 Carbon Dioxide 28 mmol/L (22-29) 10/13/20 09:37 Anion Gap 15 (12-20) 10/13/20 09:37 BUN 9 mg/dL (9-16) 10/13/20 09:37 Creatinine 0.68 mg/dL (0.5-1.4) 10/13/20 09:37 Estim Creat Clear Calc 87.2 10/13/20 09:37 Estimated GFR > 60 10/13/20 09:37 Random Glucose 124 mg/dL (60-115) H 10/13/20 09:37 Calcium 8.8 mg/dL (8.4-10.2) 10/13/20 09:37 Total Bilirubin 0.9 mg/dL (0.0-1.0) 10/13/20 09:37 AST 49 U/L (5-31) H D 10/13/20 09:37 ALT 49 U/L (0-31) H 10/13/20 09:37 Alkaline Phosphatase 220 U/L (39-117) H D 10/13/20 09:37 Total Protein 6.5 g/dL (6.5-8.0) 10/13/20 09:37 Albumin 3.2 g/dL (3.5-5.0) L 10/13/20 09:37 CA 19-9 Antigen 2636 U/mL (<34) H 09/21/20 10:10 Progress Note: A/P (1) Pancreatic carcinoma metastatic to liver Status: Acute Assessment and plan: This is a pleasant unfortunate 74 year old lady with a recent diagnosis of a Pancreatic mass, adenopathy and Liver Lesions. IMPRESSION: Large mass in the tail of the pancreas with multiple metastasis in liver and periportal and peripancreatic and retroperitoneal lymphadenopathy. Sigmoid and rest of colon diagnosis without diverticulitis. Calcified uterine fibroid. She is still in pain. Morphine and Oxycodone are helping however causing some side effects: Sweating and constipation. I advised her to take suppository and Mag citrate to clean her out. She can then be on regular senna regimen to keep her bowels soft and moving. Biopsy of the liver lesions revealed pancreatic carcinoma. I went over the diagnosis, the fact that she has stage IV disease and the guarded prognosis, with her and her . I discussed the role of palliative chemotherapy. I went over the details of systemic chemotherapy. Went over the difference between FOLFIRINOX and Gemzar Abraxane. She is inclined towards chemotherapy but would still like to maintain a reasonable QOL. She opted for the latter regimen. Details of the regimen including potential side effects of nausea vomiting diarrhea, cardiopulmonary and renal toxicity, pancytopenia, risk of infection need for antibiotic blood transfusion as well as growth factors were all addressed with her and her . They understand and are willing to proceed. PLAN: Will proceed with the chemotherapy later this week or the next week once we get the prior authorization from insurance. Meanwhile her prescriptions for MS Contin and oxycodone were refilled. She will keep me posted about how her bowel regimen works for her. Thanks, CC: Ann Valencia. - Time Spent With Patient Total time spent is greater than 50% in coordination of care (as documented) at patient's floor/unit and/or counseling patient: 25 - 35 minutes
[2020-10-13 14:36] LABS: SLIDE REVIEW VERIFIED
--- NOTE | 2020-10-14 12:18 | MHC.HEMONC ---
Patient booked fro chemo teaching on abraxane and gemzar on 10/22/20 at 1130 with a start date of 10/23/20 at 1130. Stacey in pharmacy made aware of new start. Dr. Hillman made aware to enter trt plan for 10/23/20.
--- NOTE | 2020-10-14 15:08 | MHC.HEMONCSW ---
PER [facility] [facility] REFERENCE# [id number], NO PA REQUIRED FOR ABRAXANE. INFORMED TIANNA MCKEON.
--- NOTE | 2020-10-16 14:36 | MHC.HEMONC ---
Constipation - F/up call to pt. to check in w her. During Tuesday's appt she had c/o constipation and difficulty having BM. Today she tells me that she finally had a BM and is continuing to take 2 stool softners at bedtime. We discussed the importance of hydration. I encouraged her to drink fluids throughout the day, warm fluids can help also. Avoid foods that are known to cause her constipation and get up and move about after taking pain medication and pain is controlled. She was grateful for this follow up call, and agreed to this plan of care.
[2020-10-22 08:35] VITALS: BMI 28.7
[2020-10-22] MEDS: oxyCODONE HCl Immed Release 5 MG TABLET PO (11:56)
--- NOTE | 2020-10-22 12:34 | MHC.HEMONC ---
Chemotherapy teaching completed for Abraxane/Gemzar. Patient accompanied by Gallo, consent to treat signed. All questions and concerns addressed. Patient complaining of 10/[address] Fontana notified. Ordered 5mg Oxycodone to be given now. Prn home dose of oxycodone increased to 10mg PO and sent to pharmacy, patient aware. Ensure samples given for decreased appetite and poor intake over the last few days. Patient to return on 10/23/20 for chemotherapy start.
[2020-10-23 10:33] VITALS: BP 128/56; PULSE 110; RESP 18; TEMP 36.7; O2SAT 94; BMI 28.0
[2020-10-23 10:42] LABS: Basophils Percent Auto 0.2 % (0-2); Eosinophils Percent Auto 0.2 % (0-4); Hematocrit 36.1 % (37-47); Hemoglobin 11.4 g/dl (12.0-16.0); Imm Gran Abs Auto 0.08 X10*3/uL (0.00-0.03); Imm Gran Pct Auto 0.6 % (0.0-0.4); Lymphocytes Absolute Auto 0.8 X10*3/uL (1.2-4.9); Lymphocytes Percent Auto 5.8 % (20-40); MANUAL DIFF FLAG NO; Mean Corpuscular HGB Conc 31.6 g/dl (31.0-35.0); Mean Corpuscular Hemoglobin 26.3 pg (27.0-33.0); Mean Corpuscular Volume 83.4 fL (80-98); Mean Platelet Volume 9.5 fL (9.4-12.3); Monocytes Absolute Auto 1.3 X10*3/uL (0.1-1.2); Monocytes Percent Auto 9.9 % (2-11); Neutrophils Absolute Auto 10.9 X10*3/uL (2.0-8.3); Neutrophils Percent Auto 83.3 % (45-73); Platelet Count 346 X10*3/uL (160-400); Red Blood Count 4.33 X10*6/uL (4.20-5.50); Red Cell Distribution Width 12.8 % (11.0-16.0); White Blood Count 13.1 X10*3/uL (4.8-10.8)
[2020-10-23 11:12] LABS: Alanine Aminotransferase 35 U/L (0-31); Albumin Level 2.8 g/dL (3.5-5.0); Alkaline Phosphatase 253 U/L (39-117); Anion Gap 15 (12-20); Aspartate Amino Transferase 47 U/L (5-31); Blood Urea Nitrogen 12 mg/dL (9-16); Calcium 8.8 mg/dL (8.4-10.2); Carbon Dioxide 26 mmol/L (22-29); Chloride 99 mmol/L (96-108); Creatinine Clr Calc Pharmacy 88.8; Estimated Glomerular Filt Rate > 60; Glucose Random 130 mg/dL (60-115); Sodium 136 mmol/L (135-145); Total Protein 6.1 g/dL (6.5-8.0)
[2020-10-23] MEDS: ondansetron HCL/NS 16 MG/50 ML PIGGYBACK 200 MG IV (11:58)
[2020-10-23] MEDS: dexAMETHasone sod phosphate/NS 12 MG/50 ML PIGGYBACK 200 MG IV (12:19)
[2020-10-23] MEDS: SODIUM CHLORIDE 0.9% IV (13:36)
[2020-10-23] MEDS: GEMCITABINE HCL IV (13:36)
[2020-10-23] MEDS: oxyCODONE HCl Immed Release 5 MG TABLET 10 MG PO (13:58)
[2020-10-23 14:24] VITALS: BP 136/65; PULSE 83; RESP 18; O2SAT 98
--- NOTE | 2020-10-23 14:47 | MHC.HEMONC ---
CYCLE 1 DAY 1: ABRAXANE/GEMZAR well tolerated. Patient accompanied by . Oxycodone given for abdominal pain, patient resting quietly. Vital signs stable post transfusion. No signs of infusion reaction noted.
--- NOTE | 2020-10-23 15:14 | MHC.HEMONCSW ---
CHEMO TODAY. ACCOMPANIED BY . PAIN IS STILL AN ISSUE. DISCUSSED VARIOUS TOPICS. DOES NOT WANT COUNSELING REFERRAL. EDUCATION AND SUPPORT PROVIDED.
[2020-10-30 10:02] LABS: MANUAL DIFF FLAG NO
[2020-10-30 10:14] LABS: Basophils Percent Auto 0.2 % (0-2); Eosinophils Percent Auto 0.3 % (0-4); Hematocrit 36.4 % (37-47); Hemoglobin 11.3 g/dl (12.0-16.0); Imm Gran Abs Auto 0.19 X10*3/uL (0.00-0.03); Imm Gran Pct Auto 1.8 % (0.0-0.4); Lymphocytes Absolute Auto 0.7 X10*3/uL (1.2-4.9); Lymphocytes Percent Auto 6.9 % (20-40); Mean Corpuscular Hemoglobin 25.6 pg (27.0-33.0); Mean Corpuscular Volume 82.4 fL (80-98); Mean Platelet Volume 11.2 fL (9.4-12.3); Monocytes Absolute Auto 1.2 X10*3/uL (0.1-1.2); Monocytes Percent Auto 10.9 % (2-11); Neutrophils Absolute Auto 8.5 X10*3/uL (2.0-8.3); Neutrophils Percent Auto 79.9 % (45-73); Platelet Count 147 X10*3/uL (160-400); Red Blood Count 4.42 X10*6/uL (4.20-5.50); Red Cell Distribution Width 13.2 % (11.0-16.0); White Blood Count 10.6 X10*3/uL (4.8-10.8)
[2020-10-30] MEDS: 0.9 % Sodium Chloride 1,000 ML 500 ML IVCONT (10:26)
[2020-10-30] MEDS: oxyCODONE HCl Immed Release 5 MG TABLET PO (10:31)
[2020-10-30] MEDS: Morphine Sulfate ER 30 MG TABLET.ER PO (11:04)
[2020-10-30 11:07] LABS: Alanine Aminotransferase 30 U/L (0-31); Albumin Level 2.6 g/dL (3.5-5.0); Alkaline Phosphatase 341 U/L (39-117); Anion Gap 16 (12-20); Aspartate Amino Transferase 37 U/L (5-31); Bilirubin Total 1.8 mg/dL (0.0-1.0); Blood Urea Nitrogen 15 mg/dL (9-16); Calcium 8.3 mg/dL (8.4-10.2); Carbon Dioxide 27 mmol/L (22-29); Chloride 96 mmol/L (96-108); Creatinine Clr Calc Pharmacy 90.2; Estimated Glomerular Filt Rate > 60; Glucose Random 135 mg/dL (60-115); Potassium 4.2 mmol/l (3.3-5.1); Sodium 135 mmol/L (135-145); Total Protein 5.5 g/dL (6.5-8.0)
[2020-10-30 12:20] VITALS: BP 115/55; PULSE 108; TEMP 37.4; O2SAT 92
--- NOTE | 2020-10-30 12:52 | MHC.HEMONC ---
Pt here for lab draw. Pt in wheelchair, states not feeling well. C/O abd pain and weakness in her legs. Color pale. HR 125. states she did not take her MS contin at 0830 as scheduled, stating he forgot to give to her. Pt brought to a room and into a bed. IV started right hand, NS infusing at 500cc/hr as ordered. Pt medicated with oxycodone 5mg and MS contin 30mg po for pain 05/26. Pt slept on and off, also ate small amount of soup. Once IV complete, pt stated she felt better, pain 12/24. OOB to BR to void. VS taken, temp 99.4 and HR 108, reported to Dr Hillman. IV dc'd and pt home. To return for chemo treatment next week.
[2020-11-03 11:30] VITALS: BMI 28.0
[2020-11-06 10:32] VITALS: BP 123/60; PULSE 112; RESP 18; TEMP 36.8; O2SAT 94; BMI 28.8
[2020-11-06 10:47] LABS: Basophils Percent Auto 0.2 % (0-2); Eosinophils Absolute Auto 0.1 X10*3/uL (0.0-0.4); Eosinophils Percent Auto 0.4 % (0-4); Hematocrit 35.6 % (37-47); Hemoglobin 10.9 g/dl (12.0-16.0); Imm Gran Abs Auto 0.55 X10*3/uL (0.00-0.03); Imm Gran Pct Auto 3.2 % (0.0-0.4); Lymphocytes Absolute Auto 2.3 X10*3/uL (1.2-4.9); Lymphocytes Percent Auto 13.3 % (20-40); MANUAL DIFF FLAG SCAN; Mean Corpuscular HGB Conc 30.6 g/dl (31.0-35.0); Mean Corpuscular Hemoglobin 25.5 pg (27.0-33.0); Mean Corpuscular Volume 83.4 fL (80-98); Mean Platelet Volume 9.6 fL (9.4-12.3); Monocytes Absolute Auto 2.1 X10*3/uL (0.1-1.2); Monocytes Percent Auto 12.1 % (2-11); Neutrophils Absolute Auto 12.2 X10*3/uL (2.0-8.3); Neutrophils Percent Auto 70.8 % (45-73); Platelet Count 563 X10*3/uL (160-400); Red Blood Count 4.27 X10*6/uL (4.20-5.50); Red Cell Distribution Width 14.6 % (11.0-16.0); SCAN SMEAR FLAG 1; White Blood Count 17.2 X10*3/uL (4.8-10.8)
[2020-11-06 11:13] LABS: SLIDE REVIEW VERIFIED
[2020-11-06 11:15] LABS: Alanine Aminotransferase 25 U/L (0-31); Albumin Level 2.5 g/dL (3.5-5.0); Anion Gap 16 (12-20); Aspartate Amino Transferase 43 U/L (5-31); Bilirubin Total 1.3 mg/dL (0.0-1.0); Blood Urea Nitrogen 10 mg/dL (9-16); Calcium 8.3 mg/dL (8.4-10.2); Carbon Dioxide 24 mmol/L (22-29); Chloride 98 mmol/L (96-108); Creatinine Clr Calc Pharmacy 88.6; Estimated Glomerular Filt Rate > 60; Glucose Random 113 mg/dL (60-115); Potassium 4.2 mmol/l (3.3-5.1); Sodium 134 mmol/L (135-145); Total Protein 5.5 g/dL (6.5-8.0)
[2020-11-06 11:27] LABS: Alkaline Phosphatase 521 U/L (39-117)
[2020-11-06] MEDS: Acetaminophen 325 MG TABLET 650 MG PO (11:55)
[2020-11-06] MEDS: diphenhydrAMINE HCL 50 MG/ML VIAL 25 MG IVPUSH (11:55)
[2020-11-06] MEDS: Famotidine/PF 20 MG/2 ML VIAL IVPUSH (11:55)
[2020-11-06] MEDS: dexAMETHasone sod phosphate/NS 12 MG/50 ML PIGGYBACK 200 MG IV (12:18)
--- NOTE | 2020-11-06 12:36 | MHC.HEMONCSW ---
[employer] MEDICARE; [employer] ID# [id number]
[2020-11-06] MEDS: ondansetron HCL/NS 16 MG/50 ML PIGGYBACK 200 MG IV (13:03)
--- NOTE | 2020-11-06 15:35 | MHC.HEMONCSW ---
WHILE PATIENT RECEIVED TREATMENT I MET WITH FOR SUPPORT AND EDUCATION. HE IS HEARTBROKEN BUT STATES MANAGING TO CARE FOR PATIENT, FATHER IN LAW AND AUTISTIC GRANDSON. HIS [employer] ASSIST. HE HAD QUESTIONS ON WHEN IT WILL BE TIME FOR HOSPICE, CARETAKING DUTIES ETC. SUPPORTIVE INFORMATIONAL COUNSELING PROVIDED. HE AND PATIENT ARE AWARE OF MY AVAILABILITY.
--- NOTE | 2020-11-06 15:36 | MHC.HEMONC ---
C1 DAY 15: GEMZAR/ABRAXANE well tolerated. No complaints at this time. Slight swelling noted to ankles bilaterally. Patient states this has been ongoing. Feet warm to touch with positive pulses. Dr. Hillman aware, patient instructed to elevate legs as tolerated. Patient to return next week for labs and possible hydration.
[2020-11-13 09:50] VITALS: BP 112/61; PULSE 126; RESP 18; TEMP 36.4; O2SAT 95; BMI 28.6
[2020-11-13] MEDS: 0.9 % Sodium Chloride 1,000 ML 500 ML IV (10:30)
[2020-11-13 10:34] LABS: Basophils Percent Auto 0.4 % (0-2); Eosinophils Percent Auto 0.2 % (0-4); Hematocrit 28.7 % (37-47); Imm Gran Abs Auto 0.05 X10*3/uL (0.00-0.03); Imm Gran Pct Auto 0.9 % (0.0-0.4); Lymphocytes Absolute Auto 0.6 X10*3/uL (1.2-4.9); Lymphocytes Percent Auto 10.2 % (20-40); MANUAL DIFF FLAG SCAN; Mean Corpuscular HGB Conc 31.4 g/dl (31.0-35.0); Mean Corpuscular Hemoglobin 25.8 pg (27.0-33.0); Mean Corpuscular Volume 82.2 fL (80-98); Mean Platelet Volume 11.8 fL (9.4-12.3); Monocytes Absolute Auto 0.5 X10*3/uL (0.1-1.2); Monocytes Percent Auto 9.4 % (2-11); Neutrophils Absolute Auto 4.4 X10*3/uL (2.0-8.3); Neutrophils Percent Auto 78.9 % (45-73); Red Blood Count 3.49 X10*6/uL (4.20-5.50); Red Cell Distribution Width 14.7 % (11.0-16.0); SCAN SMEAR FLAG 1; White Blood Count 5.5 X10*3/uL (4.8-10.8)
[2020-11-13 11:07] LABS: Alanine Aminotransferase 36 U/L (0-31); Albumin Level 2.3 g/dL (3.5-5.0); Alkaline Phosphatase 328 U/L (39-117); Anion Gap 14 (12-20); Aspartate Amino Transferase 39 U/L (5-31); Bilirubin Total 1.4 mg/dL (0.0-1.0); Blood Urea Nitrogen 9 mg/dL (9-16); Carbon Dioxide 27 mmol/L (22-29); Chloride 97 mmol/L (96-108); Creatinine Clr Calc Pharmacy 110.2; Estimated Glomerular Filt Rate > 60; Glucose Random 106 mg/dL (60-115); Potassium 3.6 mmol/l (3.3-5.1); Sodium 134 mmol/L (135-145); Total Protein 4.8 g/dL (6.5-8.0)
[2020-11-13 11:18] LABS: Calcium 7.5 mg/dL (8.4-10.2)
[2020-11-13 11:32] LABS: Platelet Count 94 X10*3/uL (160-400)
[2020-11-13 11:33] LABS: SLIDE REVIEW VERIFIED
[2020-11-13 13:00] VITALS: BP 115/55; PULSE 108; RESP 18; O2SAT 94
--- NOTE | 2020-11-13 13:28 | MHC.HEMONC ---
Labs obtained. Patient experiencing nausea with some dry heaving, poor po intake and weakness. Dr. Hillman aware. IV hydration ordered. Heart rate elevated upon arrival however it decreased to 106-108 post hydration. Labs reviewed. Patient to return for chemotherapy 11/20/20.
--- NOTE | 2020-11-14 10:01 | MHC.HEMONCSW ---
PATIENT ATTENDED FOR CHEMOTHERAPY, HAS ONE MORE TREATMENT LEFT. REPORTS SHE WILL THEN DECIDE IF SHE WANTS HOSPICE. THEODORE DISCUSSES HER TERMINAL ILLNESS. REPORTS CONCERN FOR HER FAMILY. 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 PATIENT FEELS SHE BURDENS HIM. BRIEF COUNSELING HELD. REFUSES SERVICES AT THIS TIME, VERBALIZES AWARENESS OF AREA RESOURCES. MUCH REASSURANCE, GUIDANCE, EDUCATION AND SUPPORT PROVIDED. BOTH ARE AWARE OF MY AVAILABILITY, REFUSES COUNSELING REFERRALS.
[2020-11-20 09:54] LABS: MANUAL DIFF FLAG NO
[2020-11-20 09:57] LABS: Basophils Percent Auto 0.6 % (0-2); Eosinophils Percent Auto 0.4 % (0-4); Hemoglobin 10.2 g/dl (12.0-16.0); Imm Gran Abs Auto 0.11 X10*3/uL (0.00-0.03); Imm Gran Pct Auto 1.6 % (0.0-0.4); Lymphocytes Absolute Auto 1.2 X10*3/uL (1.2-4.9); Lymphocytes Percent Auto 17.6 % (20-40); Mean Corpuscular HGB Conc 30.9 g/dl (31.0-35.0); Mean Corpuscular Hemoglobin 25.3 pg (27.0-33.0); Mean Corpuscular Volume 81.9 fL (80-98); Mean Platelet Volume 9.7 fL (9.4-12.3); Monocytes Absolute Auto 1.1 X10*3/uL (0.1-1.2); Monocytes Percent Auto 15.1 % (2-11); Neutrophils Absolute Auto 4.5 X10*3/uL (2.0-8.3); Neutrophils Percent Auto 64.7 % (45-73); Platelet Count 455 X10*3/uL (160-400); Red Blood Count 4.03 X10*6/uL (4.20-5.50); Red Cell Distribution Width 16.7 % (11.0-16.0); White Blood Count 6.9 X10*3/uL (4.8-10.8)
[2020-11-20 09:59] VITALS: BMI 29.0
[2020-11-20 10:16] VITALS: BP 120/56; PULSE 108; RESP 18; TEMP 36; O2SAT 96
[2020-11-20 10:42] LABS: Alanine Aminotransferase 14 U/L (0-31); Albumin Level 2.5 g/dL (3.5-5.0); Alkaline Phosphatase 302 U/L (39-117); Anion Gap 12 (12-20); Aspartate Amino Transferase 29 U/L (5-31); Blood Urea Nitrogen 8 mg/dL (9-16); Calcium 7.6 mg/dL (8.4-10.2); Carbon Dioxide 28 mmol/L (22-29); Chloride 99 mmol/L (96-108); Creatinine Clr Calc Pharmacy 106.8; Estimated Glomerular Filt Rate > 60; Glucose Random 132 mg/dL (60-115); Potassium 3.3 mmol/L (3.3-5.1); Sodium 136 mmol/L (135-145); Total Protein 5.4 g/dL (6.5-8.0)
[2020-11-20] MEDS: Acetaminophen 325 MG TABLET 650 MG PO (11:18)
[2020-11-20] MEDS: dexAMETHasone sod phosphate/NS 12 MG/50 ML PIGGYBACK 200 MG IV (11:19)
[2020-11-20] MEDS: Famotidine/PF 20 MG/2 ML VIAL IVPUSH (11:19)
[2020-11-20] MEDS: diphenhydrAMINE HCL 50 MG/ML VIAL 25 MG IVPUSH (11:48)
[2020-11-20] MEDS: ondansetron HCL/NS 16 MG/50 ML PIGGYBACK 200 MG IV (12:09)
--- NOTE | 2020-11-20 16:11 | MHC.HEMONC ---
Cycle 2 Day 15 well tolerated. Patient tearful at times, emotional support provided. Gallo at bedside. Patient to return for hydration next week. Follow up with Dr. Hillman in 2 weeks.
--- NOTE | 2020-11-21 15:29 | MHC.HEMONCSW ---
EMOTIONAL SUPPORT PROVIDED TO PATIENT AND . PATIENT TEARFUL AT TIMES. SHE MAY WANT HOSPICE BUT HESITANT BECAUSE FAMILY DOESN'T. EDUCATION AND SUPPORT PROVIDED.
[2020-11-27 09:52] VITALS: BP 121/59; PULSE 110; RESP 18; TEMP 36.6; O2SAT 95
[2020-11-27 10:01] LABS: MANUAL DIFF FLAG NO
[2020-11-27] MEDS: 0.9 % Sodium Chloride 1,000 ML 500 ML IVCONT (10:09)
[2020-11-27 10:43] LABS: Basophils Percent Auto 0.3 % (0-2); Eosinophils Percent Auto 0.2 % (0-4); Hematocrit 31.5 % (37-47); Hemoglobin 9.5 g/dl (12.0-16.0); Imm Gran Abs Auto 0.06 X10*3/uL (0.00-0.03); Imm Gran Pct Auto 0.9 % (0.0-0.4); Lymphocytes Percent Auto 15.7 % (20-40); Mean Corpuscular HGB Conc 30.2 g/dl (31.0-35.0); Mean Corpuscular Hemoglobin 24.9 pg (27.0-33.0); Mean Corpuscular Volume 82.7 fL (80-98); Mean Platelet Volume 10.8 fL (9.4-12.3); Monocytes Absolute Auto 0.4 X10*3/uL (0.1-1.2); Monocytes Percent Auto 6.2 % (2-11); Neutrophils Percent Auto 76.7 % (45-73); Platelet Count 176 X10*3/uL (160-400); Red Blood Count 3.81 X10*6/uL (4.20-5.50); Red Cell Distribution Width 16.3 % (11.0-16.0); White Blood Count 6.5 X10*3/uL (4.8-10.8)
[2020-11-27 11:09] LABS: Alanine Aminotransferase 34 U/L (0-31); Albumin Level 2.5 g/dL (3.5-5.0); Alkaline Phosphatase 231 U/L (39-117); Anion Gap 15 (12-20); Aspartate Amino Transferase 41 U/L (5-31); Bilirubin Total 1.1 mg/dL (0.0-1.0); Blood Urea Nitrogen 8 mg/dL (9-16); Calcium 7.9 mg/dL (8.4-10.2); Carbon Dioxide 30 mmol/L (22-29); Chloride 96 mmol/L (96-108); Creatinine Clr Calc Pharmacy 103.1; Estimated Glomerular Filt Rate > 60; Glucose Random 106 mg/dL (60-115); Potassium 3.6 mmol/L (3.3-5.1); Sodium 137 mmol/L (135-145); Total Protein 5.5 g/dL (6.5-8.0)
--- NOTE | 2020-11-27 13:45 | MHC.HEMONC ---
Pt here for IV hydration and lab draw. #20 angio inserted in right hand without difficulty. 1 liter of 0.9%NS infused over [address] Hillman into see pt and chat with . Peripheral IV removed from right hand-site without edema or redness or bleeding.Pt and concerned about abdominal distension. Provider ordered abd ultrasound. Pt OOB with minimal assist to w/c. Escorted to ultrasound via w/c.
--- NOTE | 2020-11-27 14:56 | MHC.HEMONCSW ---
MET WITH PATIENT WHO RECEIVED IV HYDRATION. PATIENT NOW REQUIRING MORE CARE AND IS EXPLORING WHAT THEIR DIGITAL PHOTOGRAPHER INSURANCE WILL PAY FOR [facility]. STILL DOES NOT WANT [facility]. OVER INCOME FOR [facility]. MUCH REASSURANCE, GUIDANCE, EDUCATION AND SUPPORT PROVIDED.
[2020-12-04 10:14] VITALS: BP 123/60; PULSE 96; RESP 20; TEMP 36.2; O2SAT 93; BMI 28.8
[2020-12-04 10:15] LABS: MANUAL DIFF FLAG NO
[2020-12-04 10:25] LABS: Basophils Percent Auto 0.8 % (0-2); Eosinophils Percent Auto 0.8 % (0-4); Hematocrit 34.3 % (37-47); Hemoglobin 10.1 g/dl (12.0-16.0); Imm Gran Abs Auto 0.02 X10*3/uL (0.00-0.03); Imm Gran Pct Auto 0.5 % (0.0-0.4); Lymphocytes Absolute Auto 1.2 X10*3/uL (1.2-4.9); Lymphocytes Percent Auto 31.6 % (20-40); Mean Corpuscular HGB Conc 29.4 g/dl (31.0-35.0); Mean Corpuscular Hemoglobin 25.3 pg (27.0-33.0); Mean Corpuscular Volume 85.8 fL (80-98); Mean Platelet Volume 10.1 fL (9.4-12.3); Monocytes Absolute Auto 0.6 X10*3/uL (0.1-1.2); Monocytes Percent Auto 17.4 % (2-11); Neutrophils Absolute Auto 1.8 X10*3/uL (2.0-8.3); Neutrophils Percent Auto 48.9 % (45-73); Platelet Count 300 X10*3/uL (160-400); Red Cell Distribution Width 19.2 % (11.0-16.0); White Blood Count 3.7 X10*3/uL (4.8-10.8)
[2020-12-04 10:55] LABS: Alanine Aminotransferase 13 U/L (0-31); Albumin Level 2.6 g/dL (3.5-5.0); Alkaline Phosphatase 190 U/L (39-117); Anion Gap 13 (12-20); Aspartate Amino Transferase 24 U/L (5-31); Bilirubin Total 1.1 mg/dL (0.0-1.0); Blood Urea Nitrogen 7 mg/dL (9-16); Calcium 7.7 mg/dL (8.4-10.2); Carbon Dioxide 29 mmol/L (22-29); Chloride 100 mmol/L (96-108); Creatinine Clr Calc Pharmacy 102.7; Estimated Glomerular Filt Rate > 60; Glucose Random 104 mg/dL (60-115); Potassium 3.5 mmol/L (3.3-5.1); Sodium 138 mmol/L (135-145); Total Protein 5.4 g/dL (6.5-8.0)
[2020-12-04] MEDS: Acetaminophen 325 MG TABLET 650 MG PO (11:47)
[2020-12-04] MEDS: dexAMETHasone 6 MG TABLET 12 MG PO (11:48)
[2020-12-04] MEDS: ondansetron HCL/NS 16 MG/50 ML PIGGYBACK 200 MG IV (11:50)
--- NOTE | 2020-12-04 12:34 | PM.HEMONCPN ---
Medical Summary - Medical Summary Date of Service: 12/04/20 Date of Service: 12/04/20 Chief complaint: Follow-up for: Pancreatic carcinoma Medical Summary: DIAGNOSIS; PANCREATIC CA WITH LIVER METS & RETROPERITONEAL ADENOPATHY. Biopsy of the liver lesion from 10/03. Pathology revealed: Metastatic adenocarcinoma, consistent with pancreatic primary. CK7 positive CK 20- negative. CURRENT THERAPY: GEMZAR/ABRAXANE HERE FOR CYCLE 2, Day14. Interval History Interval history: Emerald Molina is a pleasant 74 year old lady, here for a follow-up visit. She is here for a follow-up visit. She does not feel too well. She was presribed Oxycodone, 5 mg. She still had pain, 8 on 1-10 scale, it does get better with the oxycodone. She is using it sparingly, 3 times a day. Morphine was added for long-acting pain control. She has noticed that she feels sweaty, sometimes. She has been quite constipated. She has not had a bowel movement for 5 days. The stool is there but feels rather hard. That is not comfortable. She has some abdominal cramping. Nausea but no vomiting. She has occasional heartburn. She denies gross blood in the stools. Energy level is low. No fever nor chills. Her spirits are down. Rest of the review of systems is unremarkable Previous history: She had noted abdominal pain back in February. Ultrasound of abdomen from 09/21: -Examination limited secondary to overlying bowel gas. -Unremarkable sonographic imaging of the gallbladder. -Evaluation of the liver is suboptimal, however, there does appear to be a few focal heterogeneous masses superimposed upon heterogeneous background liver tissue. Further evaluation with MRI imaging without and with gadolinium is recommended to further evaluate these masses. Cat scan of abdomen from 09/21: IMPRESSION: Large mass in the tail of the pancreas with multiple metastasis in liver and periportal and peripancreatic and retroperitoneal lymphadenopathy. Sigmoid and rest of colon diagnosis without diverticulitis. Calcified uterine fibroid. Biopsy of the liver lesion from 10/03 revealed: Metastatic adenocarcinoma consistent with pancreatic primary. . Review of Systems - Constitutional Reports system reviewed and no additional complaints, except as documented - Eyes Reports system reviewed and no additional complaints, except as documented - ENT Reports system reviewed and no additional complaints, except as documented - Cardiovascular Reports system reviewed and no additional complaints, except as documented - Respiratory Reports no additional respiratory complaints - Gastrointestinal Reports system reviewed and no additional complaints, except as documented - Genitourinary Reports no additional female genitourinary complaints - Musculoskeletal Reports system reviewed and no additional complaints, except as documented - Integumentary/Breasts Skin/Breast: Reports no additional skin complaints - Neurologic Reports system reviewed and no additional complaints, except as documented, Reports weakness - Psychiatric Reports system reviewed and no additional complaints, except as documented - Endocrine Reports no additional endocrine complaints - Hematologic/Lymphatic Reports system reviewed and no additional complaints, except as documented - Allergic/Immunologic Reports system reviewed and no additional complaints, except as documented PMFSH Medical History: Medical History (Last Reviewed 12/18/20 @ 10:41 by Apple Garza RN) Hyperlipemia Functional capacity: independent ambulation Patient : No Family History: Family History (Last Reviewed 12/11/20 @ 11:01 by Apple Garza RN) Mother Lung cancer Surgical History: Surgical History (Last Reviewed 12/18/20 @ 10:41 by Apple Garza RN) History of back surgery Social History: Social History (Last Reviewed 12/18/20 @ 10:41 by Apple Garza RN) Living Situation History: Are you a primary hourly caregiver to a significant other at home: No Alcohol History: Alcohol intake: never Alcohol History Details: Alcohol intake frequency: does not drink Tobacco History: Smoking Status: Never smoker Substance Use History: Use of substances other than those prescribed or required for medical reasons: No Domestic Abuse History: Have you been hit, kicked, punched, or otherwise hurt by someone within the past year? If so, by whom?: No Do you feel safe in your current relationship?: Yes Healthcare Practices: Anabaptist Healthcare Practices: Pentecostalism Nutrition Assessment: Recently lost weight without trying: Yes How much weight loss: 2-13 pounds Nutrition Risks: No Nutritional Risk Patient : No : No Poor oral hygiene: No Smoking status: Never smoker Home Medications and Allergies Current Medications: Current Medications Generic Name Dose Route Start Last Admin Trade Name Freq PRN Reason Stop Dose Admin Acetaminophen 650 mg 12/04/20 00:00 12/04/20 11:47 Acetaminophen 325 Mg Tablet PO 12/04/20 23:59 650 mg ONCE LUDMILA Administration Dexamethasone 12 mg 12/04/20 00:00 12/04/20 11:48 Dexamethasone 6 Mg Tablet PO 12/04/20 23:59 12 mg ONCE LUDMILA Administration Ondansetron HCl 16 mg in 50 mls @ 200 mls/hr 11/06/20 13:00 11/06/20 13:18 Zofran IV Infused ONCE LUDMILA Infusion Ondansetron HCl 16 mg in 50 mls @ 200 mls/hr 11/20/20 12:00 11/20/20 12:24 Zofran IV Infused ONCE LUDMILA Infusion Ondansetron HCl 16 mg in 50 mls @ 200 mls/hr 12/04/20 00:00 12/04/20 11:50 Zofran IV 12/04/20 23:59 200 mls/hr ONCE LUDMILA Administration Paclitaxel/Albumin ( 52 mls @ 104 mls/hr 12/04/20 00:00 Nanoparticle) 260 mg/ IV IV 12/04/20 23:59 Miscellaneous Supplies ONCE LUDMILA Gemcitabine HCl 2,000 mg/ 304.9684 mls @ 609.937 mls/hr 12/04/20 00:00 Gemcitabine HCl 90 mg/ Sodium IV 12/04/20 23:59 Chloride ONCE LUDMILA Home Medications Medication Instructions Recorded Confirmed Type Senna Laxative-Stool Softener 10/23/20 10/23/20 History Allergies Allergy/AdvReac Type Severity Reaction Status Date / Time No Known Allergies Allergy Verified 09/21/20 09:24 Exam Vital signs: Vital Signs Temp 97.1 F 12/04/20 10:14 Pulse 96 12/04/20 10:14 Resp 20 12/04/20 10:14 BP 123/60 12/04/20 10:14 Pulse Ox 93 12/04/20 10:14 Intake & Output 12/03/20 12/04/20 12/04/20 18:59 06:59 18:59 Other: Weight 88.6 kg Weight in Grams 18667 Weight 88.6 kg Body Mass Index 28.8 - Constitutional Present: mild distress. Absent: no acute distress - Routine HEENT Exam Head: Present: normal inspection Eye: Present: normal appearance ENT: Present: mucous membranes moist - Routine Neck Exam Present: full ROM - Routine Respiratory Exam Present: CTAB - Routine Cardiovascular Exam Cardiovascular: Present: S1, S2 - Routine Abdominal Exam Present: firm, tenderness - Routine Rectal Exam Patient deferred: digital exam - Routine Extremities Exam Present: nontender - Routine Back/Spine/Pelvis Exam Back/Spine: Present: full ROM - Routine Skin Exam Present: intact - Routine Neurological Exam Present: alert, oriented X3 - Detailed Neurological Exam: Coma Scale Eye Opening: Spontaneous (4) - Routine Psychiatric Exam Present: normal affect Data - Labs CBC & Chem 7: 12/18/20 10:10 12/18/20 10:10 Labs: 09/22/20 10:10 Carbohydrate Antigen 19-9 Routine 09/23/20 12:30 Add Laboratory Test Routine 10/13/20 09:37 CMP [Comprehensive Met. Panel] Routine Complete Blood Count Auto Diff Routine SLIDE REVIEW Routine 10/22/20 11:43 oxyCODONE HCl Immed Release [Roxicodone] 5 mg PO ONCE ONE 10/23/20 00:00 Gemcitabine HCl [Gemzar] 2,000 mg 0.9 % Sodium Chloride [Ns] 250 ml IV ONCE PACLitaxel Protein-Bound [Abraxane] 260 mg Container,Empty 0 ml IV ONCE dexAMETHasone sod phosphate/NS [Decadron] 12 mg in 50 ml IV ONCE ondansetron HCL/NS [Zofran] 16 mg in 50 ml IV ONCE 10/23/20 10:33 Complete Blood Count Auto Diff Routine Comprehensive Met. Panel Routine 10/23/20 13:45 oxyCODONE HCl Immed Release [Roxicodone] 10 mg PO ONCE ONE 10/30/20 00:00 dexAMETHasone sod phosphate/NS [Decadron] 12 mg in 50 ml IV ONCE ondansetron HCL/NS [Zofran] 16 mg in 50 ml IV ONCE 10/30/20 09:54 Complete Blood Count Auto Diff Routine Comprehensive Met. Panel Routine 10/30/20 10:00 0.9 % Sodium Chloride [Ns] 1,000 ml IVCONT 500 mls/hr 10/30/20 10:04 Morphine Sulfate ER [MS Contin] 30 mg PO ONCE ONE 10/30/20 10:05 oxyCODONE HCl Immed Release [Roxicodone] 5 mg PO ONCE ONE 11/06/20 00:00 Acetaminophen [Tylenol] 650 mg PO ONCE Famotidine/PF [Pepcid/PF] 20 mg IVPUSH ONCE Gemcitabine HCl [Gemzar] 2,000 mg Gemcitabine HCl [Gemzar] 50 mg 0.9 % Sodium Chloride [Ns] 250 ml IV ONCE PACLitaxel Protein-Bound [Abraxane] 260 mg Container,Empty 0 ml IV ONCE dexAMETHasone sod phosphate/NS [Decadron] 12 mg in 50 ml IV ONCE diphenhydrAMINE HCL [Benadryl] 25 mg IVPUSH ONCE 11/06/20 10:30 Complete Blood Count Auto Diff Routine Comprehensive Met. Panel Routine SLIDE REVIEW Routine 11/13/20 10:16 SLIDE REVIEW Routine 11/13/20 10:16 CMP [Comprehensive Met. Panel] Routine Complete Blood Count Auto Diff Routine 11/13/20 11:00 0.9 % Sodium Chloride [Ns] 1,000 ml IV 500 mls/hr 11/20/20 00:00 Acetaminophen [Tylenol] 650 mg PO ONCE Famotidine/PF [Pepcid/PF] 20 mg IVPUSH ONCE Gemcitabine HCl [Gemzar] 2,000 mg Gemcitabine HCl [Gemzar] 50 mg 0.9 % Sodium Chloride [Ns] 250 ml IV ONCE PACLitaxel Protein-Bound [Abraxane] 260 mg Container,Empty 0 ml IV ONCE dexAMETHasone sod phosphate/NS [Decadron] 12 mg in 50 ml IV ONCE diphenhydrAMINE HCL [Benadryl] 25 mg IVPUSH ONCE 11/20/20 09:45 CMP [Comprehensive Met. Panel] Routine Complete Blood Count Auto Diff Routine 11/27/20 08:45 0.9 % Sodium Chloride [Ns] 1,000 ml IVCONT 500 mls/hr 11/27/20 09:55 CMP [Comprehensive Met. Panel] Routine Complete Blood Count Auto Diff Routine 12/04/20 10:13 Complete Blood Count Auto Diff Routine Comprehensive Met. Panel Routine Laboratory Last Values WBC 3.7 X10*3/uL (4.8-10.8) L 12/04/20 10:13 RBC 4.00 X10*6/uL (4.20-5.50) L 12/04/20 10:13 Hgb 10.1 g/dl (12.0-16.0) L 12/04/20 10:13 Hct 34.3 % (37-47) L 12/04/20 10:13 MCV 85.8 fL (80-98) 12/04/20 10:13 MCH 25.3 pg (27.0-33.0) L 12/04/20 10:13 MCHC 29.4 g/dl (31.0-35.0) L 12/04/20 10:13 RDW 19.2 % (11.0-16.0) H 12/04/20 10:13 Plt Count 300 X10*3/uL (160-400) D 12/04/20 10:13 MPV 10.1 fL (9.4-12.3) 12/04/20 10:13 Immature Gran % (Auto) 0.5 % (0.0-0.4) H 12/04/20 10:13 Neut % (Auto) 48.9 % (45-73) 12/04/20 10:13 Lymph % (Auto) 31.6 % (20-40) 12/04/20 10:13 [place] % (Auto) 17.4 % (2-11) H 12/04/20 10:13 Eos % (Auto) 0.8 % (0-4) 12/04/20 10:13 Baso % (Auto) 0.8 % (0-2) 12/04/20 10:13 Lymph # (Auto) 1.2 X10*3/uL (1.2-4.9) 12/04/20 10:13 [place] # (Auto) 0.6 X10*3/uL (0.1-1.2) 12/04/20 10:13 Eos # (Auto) 0.0 X10*3/uL (0.0-0.4) 12/04/20 10:13 Baso # (Auto) 0.0 X10*3/uL (0.0-0.2) 12/04/20 10:13 Abs Immat Gran (auto) 0.02 X10*3/uL (0.00-0.03) 12/04/20 10:13 Absolute Neuts (auto) 1.8 X10*3/uL (2.0-8.3) L 12/04/20 10:13 Absolute Nucleated RBC 0.000 X10*3/uL (0.0-0.012) 12/04/20 10:13 Nucleated RBC % (auto) 0.0 /100WBC (0.0-0.2) 12/04/20 10:13 Smear Tech's Comments VERIFIED 11/13/20 10:16 Sodium 138 mmol/L (135-145) 12/04/20 10:13 Potassium 3.5 mmol/L (3.3-5.1) 12/04/20 10:13 Chloride 100 mmol/L (96-108) 12/04/20 10:13 Carbon Dioxide 29 mmol/L (22-29) 12/04/20 10:13 Anion Gap 13 (12-20) 12/04/20 10:13 BUN 7 mg/dL (9-16) L 12/04/20 10:13 Creatinine 0.57 mg/dL (0.5-1.4) 12/04/20 10:13 Estim Creat Clear Calc 102.7 12/04/20 10:13 Estimated GFR > 60 12/04/20 10:13 Random Glucose 104 mg/dL (60-115) 12/04/20 10:13 Calcium 7.7 mg/dL (8.4-10.2) L 12/04/20 10:13 Total Bilirubin 1.1 mg/dL (0.0-1.0) H 12/04/20 10:13 AST 24 U/L (5-31) D 12/04/20 10:13 ALT 13 U/L (0-31) 12/04/20 10:13 Alkaline Phosphatase 190 U/L (39-117) H 12/04/20 10:13 Total Protein 5.4 g/dL (6.5-8.0) L 12/04/20 10:13 Albumin 2.6 g/dL (3.5-5.0) L 12/04/20 10:13 CA 19-9 Antigen 2636 U/mL (<34) H 09/21/20 10:10 Progress Note: A/P (1) Pancreatic carcinoma metastatic to liver Status: Deleted Assessment and plan: This is a pleasant unfortunate 74 year old lady with a recent diagnosis of a Pancreatic mass, adenopathy and Liver Lesions. IMPRESSION: Large mass in the tail of the pancreas with multiple metastasis in liver and periportal and peripancreatic and retroperitoneal lymphadenopathy. Sigmoid and rest of colon diagnosis without diverticulitis. Calcified uterine fibroid. She is still in pain. Morphine and Oxycodone are helping however causing some side effects: Sweating and constipation. I advised her to take suppository and Mag citrate to clean her out. She can then be on regular senna regimen to keep her bowels soft and moving. Biopsy of the liver lesions revealed pancreatic carcinoma. I went over the diagnosis, the fact that she has stage IV disease and the guarded prognosis, with her and her . I discussed the role of palliative chemotherapy. I went over the details of systemic chemotherapy. Went over the difference between FOLFIRINOX and Gemzar Abraxane. She is inclined towards chemotherapy but would still like to maintain a reasonable QOL. She opted for the latter regimen. Details of the regimen including potential side effects of nausea vomiting diarrhea, cardiopulmonary and renal toxicity, pancytopenia, risk of infection need for antibiotic blood transfusion as well as growth factors were all addressed with her and her . They understand and are willing to proceed. She did get started on the treatment. She is tolerating it but with few side effects, fatigue and nausea. PLAN: Will continue on the current regimen. Will re-stage after completion of 3 cycles. Meanwhile her prescriptions for MS Contin and oxycodone were refilled. She will keep me posted about how her bowel regimen works for her. Thanks, CC: Ann Valencia. - Time Spent With Patient Total time spent is greater than 50% in coordination of care (as documented) at patient's floor/unit and/or counseling patient: 25 - 35 minutes
--- NOTE | 2020-12-04 14:52 | MHC.HEMONC ---
Pt here for cycle 2 day 1 of abraxine/gemzar IV. # 20 angio inserted in right hand without difficulty. Lab draw performed by phlebotomy. Labs reviewed-Clinical summary updated by nurse. Pre medicated with zofran 16mg IV, decadron and tylenol po. Tolerated infusion well. Abdomen distended-Dr Hillman notified and into see pt. Follow up appointment made for next week for IV hydration.
[2020-12-08 11:02] LABS: Carbohydrate Antigen 19-9 10366 U/mL (<34)
[2020-12-11 09:35] VITALS: BP 116/55; PULSE 18; RESP 18; TEMP 36.1; O2SAT 95; BMI 27.5
[2020-12-11 10:27] LABS: Basophils Percent Auto 0.5 % (0-2); Eosinophils Percent Auto 0.3 % (0-4); Hematocrit 28.3 % (37-47); Hemoglobin 8.5 g/dl (12.0-16.0); Imm Gran Abs Auto 0.05 X10*3/uL (0.00-0.03); Imm Gran Pct Auto 1.3 % (0.0-0.4); Lymphocytes Absolute Auto 0.6 X10*3/uL (1.2-4.9); Lymphocytes Percent Auto 14.5 % (20-40); MANUAL DIFF FLAG SCAN; Mean Corpuscular Hemoglobin 25.1 pg (27.0-33.0); Mean Corpuscular Volume 83.7 fL (80-98); Mean Platelet Volume 10.2 fL (9.4-12.3); Monocytes Absolute Auto 0.3 X10*3/uL (0.1-1.2); Monocytes Percent Auto 8.2 % (2-11); Neutrophils Percent Auto 75.2 % (45-73); Platelet Count 133 X10*3/uL (160-400); Red Blood Count 3.38 X10*6/uL (4.20-5.50); Red Cell Distribution Width 18.8 % (11.0-16.0); SCAN SMEAR FLAG 1; White Blood Count 3.9 X10*3/uL (4.8-10.8)
[2020-12-11 10:50] LABS: SLIDE REVIEW VERIFIED
[2020-12-11 11:05] LABS: Alanine Aminotransferase 30 U/L (0-31); Albumin Level 2.4 g/dL (3.5-5.0); Alkaline Phosphatase 171 U/L (39-117); Anion Gap 12 (12-20); Aspartate Amino Transferase 32 U/L (5-31); Bilirubin Total 0.9 mg/dL (0.0-1.0); Blood Urea Nitrogen 5 mg/dL (9-16); Calcium 7.7 mg/dL (8.4-10.2); Carbon Dioxide 30 mmol/L (22-29); Chloride 99 mmol/L (96-108); Creatinine Clr Calc Pharmacy 112.4; Estimated Glomerular Filt Rate > 60; Glucose Random 111 mg/dL (60-115); Potassium 3.1 mmol/L (3.3-5.1); Sodium 138 mmol/L (135-145)
--- NOTE | 2020-12-11 12:22 | MHC.HEMONC ---
Pt here for lab draw and IV hydration. #20 angio inserted left hand without success. #22 angio inserted right hand with success. 1000ml 0.9%NS infused over 2 hours-tolerated well. Pt states she had a rough week with nausea and vomiting. Slight pedal and ankle edema bilaterally. Abdomen slightly distended. Lab results given to Dr Hillman. Provider notified of H & H of 8.5/28.3 will monitor. Follow up appointments booked
--- NOTE | 2020-12-11 14:02 | MHC.HEMONCSW ---
REFERRAL MADE TO [facility] AT [facility] FOR LONG-TERM, GRIND OPERATOR AND PHYSIO.
[2020-12-15 14:22] LABS: Carbohydrate Antigen 19-9 7760 U/mL (<34)
[2020-12-18 09:49] VITALS: BP 124/92; PULSE 101; RESP 18; TEMP 36.3; O2SAT 95; BMI 26.6
[2020-12-18 10:18] LABS: Basophils Percent Auto 0.7 % (0-2); Eosinophils Absolute Auto 0.1 X10*3/uL (0.0-0.4); Eosinophils Percent Auto 1.7 % (0-4); Hematocrit 32.2 % (37-47); Hemoglobin 9.7 g/dl (12.0-16.0); Imm Gran Abs Auto 0.01 X10*3/uL (0.00-0.03); Imm Gran Pct Auto 0.3 % (0.0-0.4); Lymphocytes Absolute Auto 0.6 X10*3/uL (1.2-4.9); Lymphocytes Percent Auto 21.3 % (20-40); MANUAL DIFF FLAG SCAN; Mean Corpuscular HGB Conc 30.1 g/dl (31.0-35.0); Mean Corpuscular Hemoglobin 26.1 pg (27.0-33.0); Mean Corpuscular Volume 86.8 fL (80-98); Monocytes Absolute Auto 0.6 X10*3/uL (0.1-1.2); Monocytes Percent Auto 18.9 % (2-11); Neutrophils Absolute Auto 1.7 X10*3/uL (2.0-8.3); Neutrophils Percent Auto 57.1 % (45-73); Platelet Count 228 X10*3/uL (160-400); Red Blood Count 3.71 X10*6/uL (4.20-5.50); Red Cell Distribution Width 21.2 % (11.0-16.0); SCAN SMEAR FLAG 1
[2020-12-18 10:41] LABS: SLIDE REVIEW VERIFIED
[2020-12-18 11:20] LABS: Alanine Aminotransferase 9 U/L (0-31); Albumin Level 2.6 g/dL (3.5-5.0); Alkaline Phosphatase 158 U/L (39-117); Anion Gap 10 (12-20); Aspartate Amino Transferase 19 U/L (5-31); Bilirubin Total 0.8 mg/dL (0.0-1.0); Blood Urea Nitrogen 7 mg/dL (9-16); Carbon Dioxide 32 mmol/L (22-29); Chloride 101 mmol/L (96-108); Estimated Glomerular Filt Rate > 60; Glucose Random 142 mg/dL (60-115); Potassium 3.6 mmol/L (3.3-5.1); Sodium 139 mmol/L (135-145); Total Protein 5.4 g/dL (6.5-8.0)
[2020-12-18] MEDS: Acetaminophen 325 MG TABLET 650 MG PO (11:33)
[2020-12-18] MEDS: dexAMETHasone 6 MG TABLET 12 MG PO (11:34)
[2020-12-18] MEDS: ondansetron HCL/NS 16 MG/50 ML PIGGYBACK 200 MG IV (11:34)
[2020-12-18] MEDS: PACLITAXEL PROTEIN BOUND IV (13:20)
[2020-12-18] MEDS: CONTAINER EMPTY IV (13:20)
[2020-12-18] MEDS: SODIUM CHLORIDE 0.9% IV (13:57)
[2020-12-18] MEDS: GEMCITABINE HCL IV (13:57)
--- NOTE | 2020-12-18 14:44 | MHC.HEMONC ---
Pt here for day 2 cycle 15 of Abraxane and Gemzar. #20 angio inserted in right hand without difficulty. 0.9% NS started. Peripheral lab draw by parts consultant. Lab results reviewed. Pt states she has a healing bedsore on right hip area-not observed by nurse. Pt states she has been using eucerin cr to area with improvement. Bilateral pedal and ankle edema. Continues with fatigue. Premedicated with 650mg tylenol orally, 12mg of dexadron orally and 16mg zofran IV. Abraxane and Gemzar IV given . Follow up appointment made. IV discontinued. No edema or redness at site.
[2020-12-25 10:02] VITALS: BP 136/81; PULSE 100; RESP 17; TEMP 36.8; O2SAT 96
[2020-12-25 10:12] LABS: MANUAL DIFF FLAG NO
--- NOTE | 2020-12-25 10:16 | MHC.HEMONCSW ---
PATIENT CONTINUES CHEMO REGIME. TOLERATING THIS FAIRLY WELL. SHE IS AWARE OF MY AVAILABILITY IF NEEDED.
[2020-12-25 10:17] LABS: Basophils Percent Auto 0.7 % (0-2); Eosinophils Percent Auto 0.4 % (0-4); Hematocrit 30.6 % (37-47); Hemoglobin 9.5 g/dl (12.0-16.0); Imm Gran Abs Auto 0.05 X10*3/uL (0.00-0.03); Imm Gran Pct Auto 1.1 % (0.0-0.4); Lymphocytes Absolute Auto 0.9 X10*3/uL (1.2-4.9); Lymphocytes Percent Auto 19.3 % (20-40); Mean Corpuscular Hemoglobin 26.3 pg (27.0-33.0); Mean Corpuscular Volume 84.8 fL (80-98); Mean Platelet Volume 9.8 fL (9.4-12.3); Monocytes Absolute Auto 0.4 X10*3/uL (0.1-1.2); Monocytes Percent Auto 8.2 % (2-11); Neutrophils Absolute Auto 3.2 X10*3/uL (2.0-8.3); Neutrophils Percent Auto 70.3 % (45-73); Platelet Count 176 X10*3/uL (160-400); Red Blood Count 3.61 X10*6/uL (4.20-5.50); Red Cell Distribution Width 20.3 % (11.0-16.0); White Blood Count 4.5 X10*3/uL (4.8-10.8)
[2020-12-25] MEDS: 0.9 % Sodium Chloride 1,000 ML 500 ML IVCONT (10:17)
--- NOTE | 2020-12-25 10:19 | MHC.HEMONCSW ---
MET WITH PATIENT AND . PATIENT REPORTS COPING BETTER BECAUSE THE [facility] HAS PROVIDED HER WITH AN RN, RIGHT OF WAY CLEARER, SW AND PT/OT...FEELING LESS ISOLATED AND HOPEFUL. EDUCATION AND SUPPORT PROVIDED.
[2020-12-25 10:50] LABS: Alanine Aminotransferase 21 U/L (0-31); Albumin Level 2.8 g/dL (3.5-5.0); Alkaline Phosphatase 185 U/L (39-117); Anion Gap 12 (12-20); Aspartate Amino Transferase 30 U/L (5-31); Blood Urea Nitrogen 4 mg/dL (9-16); Calcium 8.1 mg/dL (8.4-10.2); Carbon Dioxide 27 mmol/L (22-29); Chloride 99 mmol/L (96-108); Creatinine Clr Calc Pharmacy 100.7; Estimated Glomerular Filt Rate > 60; Glucose Fasting 133 mg/dL (60-99); Potassium 3.2 mmol/L (3.3-5.1); Sodium 135 mmol/L (135-145); Total Protein 5.8 g/dL (6.5-8.0)
--- NOTE | 2020-12-25 12:21 | MHC.HEMONC ---
Pt here for IV hydration and lab draw. #22 angio inserted right hand without difficulty. 0.9% NS 1000ml infusing as ordered. Lab draw by phlebotomy. Lab results given to Dr Hillman. Second Covid 19 vaccine administered by Rois WYNN from ED. Next appointment booked and calendar given to pt.
--- NOTE | 2020-12-29 11:54 | MHC.HEMONCSW ---
PER [facility]AR[facility] VISITING NURSE...PALLIATIVE PROGRAM...RN, MERLIN AND PHYSIO.
--- NOTE | 2020-12-29 16:21 | MHC.HEMONC ---
[facility] RN, Flex called to say that pt was cutting MS Contin and taking it due to she wasn't needing full dose . Flex educated her on not scoring LA Morphine but he did call to ask for next rx to be 15mg. Dr Hillman given message and will order 15mg BID. Pt was informed. We will be seeing her on .
[2021-01-01 09:51] VITALS: BP 124/58; PULSE 98; RESP 18; TEMP 36.3; O2SAT 94; BMI 25.6
[2021-01-01 10:10] LABS: MANUAL DIFF FLAG NO
[2021-01-01 10:15] LABS: Basophils Percent Auto 1.1 % (0-2); Eosinophils Absolute Auto 0.1 X10*3/uL (0.0-0.4); Hematocrit 31.7 % (37-47); Hemoglobin 9.8 g/dl (12.0-16.0); Imm Gran Abs Auto 0.02 X10*3/uL (0.00-0.03); Imm Gran Pct Auto 0.5 % (0.0-0.4); Lymphocytes Absolute Auto 0.8 X10*3/uL (1.2-4.9); Lymphocytes Percent Auto 22.7 % (20-40); Mean Corpuscular HGB Conc 30.9 g/dl (31.0-35.0); Mean Corpuscular Hemoglobin 27.1 pg (27.0-33.0); Mean Corpuscular Volume 87.8 fL (80-98); Mean Platelet Volume 9.6 fL (9.4-12.3); Monocytes Absolute Auto 0.7 X10*3/uL (0.1-1.2); Monocytes Percent Auto 17.8 % (2-11); Neutrophils Percent Auto 54.9 % (45-73); Platelet Count 270 X10*3/uL (160-400); Red Blood Count 3.61 X10*6/uL (4.20-5.50); Red Cell Distribution Width 20.7 % (11.0-16.0); White Blood Count 3.7 X10*3/uL (4.8-10.8)
[2021-01-01 11:36] LABS: Alanine Aminotransferase 9 U/L (0-31); Albumin Level 2.8 g/dL (3.5-5.0); Alkaline Phosphatase 181 U/L (39-117); Anion Gap 8 (12-20); Aspartate Amino Transferase 19 U/L (5-31); Bilirubin Total 0.9 mg/dL (0.0-1.0); Blood Urea Nitrogen 7 mg/dL (9-16); Calcium 8.1 mg/dL (8.4-10.2); Carbon Dioxide 31 mmol/L (22-29); Chloride 101 mmol/L (96-108); Creatinine Clr Calc Pharmacy 90.4; Estimated Glomerular Filt Rate > 60; Glucose Random 120 mg/dL (60-115); Potassium 3.4 mmol/L (3.3-5.1); Sodium 137 mmol/L (135-145); Total Protein 5.7 g/dL (6.5-8.0)
[2021-01-01] MEDS: Acetaminophen 325 MG TABLET 650 MG PO (12:08)
[2021-01-01] MEDS: dexAMETHasone sod phosphate/NS 12 MG/50 ML PIGGYBACK 200 MG IV (12:08)
[2021-01-01] MEDS: ondansetron HCL/NS 16 MG/50 ML PIGGYBACK 200 MG IV (12:28)
[2021-01-01] MEDS: PACLITAXEL PROTEIN BOUND IV (12:57)
[2021-01-01] MEDS: CONTAINER EMPTY IV (12:57)
--- NOTE | 2021-01-01 16:24 | MHC.HEMONC ---
Pt here for cycle 3 day 1 of Gemcitabine/Paclitaxel IV. Peripheral IV #22 started in right hand after second attempt. 0.9 NS infusing. Lab draw by geotechnical operating engineer. Lab results reviewed. Pt premedicated with 12 mg of decadron IV, 16mg zofran IV, tylenol 650mg orally. Pt states she had a good week, states feels a little stronger with improved appetite. Gemcitabine and Paclitaxel IV given as ordered via peripheral IV. Follow up appointment made. Peripheral IV removed-no edema or redness at site.
[2021-01-03 12:17] LABS: Carbohydrate Antigen 19-9 6986 U/mL (<34)
[2021-01-08] MEDS: 0.9 % Sodium Chloride 1,000 ML 500 ML IVCONT (10:24)
[2021-01-08 10:27] VITALS: BP 127/66; PULSE 85; RESP 18; TEMP 36.2; O2SAT 96; BMI 25.1
[2021-01-08 11:08] LABS: MANUAL DIFF FLAG NO
[2021-01-08 11:23] LABS: Basophils Percent Auto 0.6 % (0-2); Eosinophils Percent Auto 0.4 % (0-4); Hematocrit 28.4 % (37-47); Hemoglobin 8.6 g/dl (12.0-16.0); Imm Gran Abs Auto 0.05 X10*3/uL (0.00-0.03); Imm Gran Pct Auto 1.1 % (0.0-0.4); Lymphocytes Absolute Auto 0.8 X10*3/uL (1.2-4.9); Lymphocytes Percent Auto 17.6 % (20-40); Mean Corpuscular HGB Conc 30.3 g/dl (31.0-35.0); Mean Corpuscular Hemoglobin 26.9 pg (27.0-33.0); Mean Corpuscular Volume 88.8 fL (80-98); Mean Platelet Volume 9.7 fL (9.4-12.3); Monocytes Absolute Auto 0.5 X10*3/uL (0.1-1.2); Monocytes Percent Auto 9.7 % (2-11); Neutrophils Absolute Auto 3.4 X10*3/uL (2.0-8.3); Neutrophils Percent Auto 70.6 % (45-73); Platelet Count 169 X10*3/uL (160-400); Red Cell Distribution Width 19.1 % (11.0-16.0); White Blood Count 4.8 X10*3/uL (4.8-10.8)
[2021-01-08 11:51] LABS: Alanine Aminotransferase 13 U/L (0-31); Albumin Level 2.6 g/dL (3.5-5.0); Alkaline Phosphatase 178 U/L (39-117); Anion Gap 11 (12-20); Aspartate Amino Transferase 22 U/L (5-31); Bilirubin Total 0.5 mg/dL (0.0-1.0); Blood Urea Nitrogen 6 mg/dL (9-16); Carbon Dioxide 29 mmol/L (22-29); Chloride 102 mmol/L (96-108); Creatinine Clr Calc Pharmacy 88.9; Estimated Glomerular Filt Rate > 60; Glucose Random 151 mg/dL (60-115); Potassium 3.9 mmol/L (3.3-5.1); Sodium 138 mmol/L (135-145); Total Protein 5.2 g/dL (6.5-8.0)
--- NOTE | 2021-01-08 12:33 | MHC.HEMONC ---
Pt here for IV hydration. Coworker inserted IV. Hydration completed. IV deaccessed. IV site asymptomiatic. Pt departed with follow-up appt.
--- NOTE | 2021-01-14 14:19 | HO.HEMONCPA ---
PA not required due to patient having Medicare as primary insurance
[2021-01-15 09:51] VITALS: BP 103/57; PULSE 86; RESP 18; TEMP 36.3; O2SAT 93; BMI 25.5
[2021-01-15 10:23] LABS: MANUAL DIFF FLAG NO
[2021-01-15 10:30] LABS: Eosinophils Absolute Auto 0.2 X10*3/uL (0.0-0.4); Eosinophils Percent Auto 3.7 % (0-4); Hematocrit 33.8 % (37-47); Hemoglobin 10.3 g/dl (12.0-16.0); Imm Gran Abs Auto 0.01 X10*3/uL (0.00-0.03); Imm Gran Pct Auto 0.2 % (0.0-0.4); Lymphocytes Absolute Auto 0.8 X10*3/uL (1.2-4.9); Lymphocytes Percent Auto 20.1 % (20-40); Mean Corpuscular HGB Conc 30.5 g/dl (31.0-35.0); Mean Corpuscular Hemoglobin 27.6 pg (27.0-33.0); Mean Corpuscular Volume 90.6 fL (80-98); Monocytes Absolute Auto 0.8 X10*3/uL (0.1-1.2); Monocytes Percent Auto 19.7 % (2-11); Neutrophils Absolute Auto 2.3 X10*3/uL (2.0-8.3); Neutrophils Percent Auto 55.3 % (45-73); Platelet Count 359 X10*3/uL (160-400); Red Blood Count 3.73 X10*6/uL (4.20-5.50); Red Cell Distribution Width 19.5 % (11.0-16.0); White Blood Count 4.1 X10*3/uL (4.8-10.8)
[2021-01-15 10:57] LABS: Alanine Aminotransferase 12 U/L (0-31); Albumin Level 2.7 g/dL (3.5-5.0); Alkaline Phosphatase 218 U/L (39-117); Anion Gap 9 (12-20); Aspartate Amino Transferase 25 U/L (5-31); Bilirubin Total 0.7 mg/dL (0.0-1.0); Blood Urea Nitrogen 7 mg/dL (9-16); Calcium 8.2 mg/dL (8.4-10.2); Carbon Dioxide 29 mmol/L (22-29); Chloride 103 mmol/L (96-108); Creatinine Clr Calc Pharmacy 90.4; Estimated Glomerular Filt Rate > 60; Glucose Random 137 mg/dL (60-115); Potassium 4.1 mmol/L (3.3-5.1); Sodium 137 mmol/L (135-145); Total Protein 5.7 g/dL (6.5-8.0)
[2021-01-15] MEDS: Acetaminophen 325 MG TABLET 650 MG PO (11:08)
[2021-01-15] MEDS: ondansetron HCL/NS 16 MG/50 ML PIGGYBACK 200 MG IV (11:10)
[2021-01-15] MEDS: dexAMETHasone sod phosphate/NS 12 MG/50 ML PIGGYBACK 200 MG IV (11:37)
[2021-01-15] MEDS: CONTAINER EMPTY IV (12:11)
[2021-01-15] MEDS: PACLITAXEL PROTEIN BOUND IV (12:11)
--- NOTE | 2021-01-15 16:07 | MHC.HEMONC ---
01/15/21 13:56 - Hem/Onc Nursing Notes by Apple Garza, RN Pt here for Cycle 3 Day 15 of Paclitaxel/Gemzar IV. Peripheral lab drawn performed by assistant sales director. Specimen sent to lab. # 22 angio inserted in right hand without difficulty, 0.9% NS infusing at 100ml hour. Lab results reviewed. Pt pre medicated with acetaminophen 650mg orally, decadron 12mg IV and zofran 16mg IV. Paclitaxell protein bound and Gemzar IV given as ordered-tolerated well. IV removed-no edema or redness at site. Discharge instructions and education given to pt. Dr Hillman into see pt-plan of care discussed with pt and . Plan for CT abdomen and pelvis next week-pt informed. Order for CT abdomen/pelvis printed and given to Cristin wade in order forestry instructor. Pt states she will be in next week for IV hydration. Initialized on 01/15/21 13:56 - END OF NOTE
--- NOTE | 2021-01-15 16:27 | MHC.HEMONCSW ---
PATIENT HERE FOR TREATMENT. REPORTS FEELING BETTER WHICH HELPS HER COPE BETTER. DECLINES MEETING WITH ME SO I MET WITH . 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 HAS SOME DIFFICULT DAYS, DISCUSSED AND DYING. 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 MUCH REASSURANCE, GUIDANCE, EDUCATION AND SUPPORT PROVIDED. PATIENT CONTINUES TO RECEIVE [facility]IT[facility]SES. BOTH ARE AWARE OF MY AVAILABILITY.
--- NOTE | 2021-01-15 16:33 | P.PNHO_ITS ---
Medical Summary - Medical Summary Date of Service: 01/15/21 Chief complaint: Follow-up for: Pancreatic carcinoma. Medical Summary: DIAGNOSIS; PANCREATIC CA WITH LIVER METS & RETROPERITONEAL ADENOPATHY. Biopsy of the liver lesion from 10/03. Pathology revealed: Metastatic adenocarcinoma, consistent with pancreatic primary. CK7 positive CK 20- negative. CURRENT THERAPY: GEMZAR/ABRAXANE HERE FOR CYCLE 4, Day1. Interval History Interval history: Emerald Molina is a pleasant 75 year old lady, here for a follow-up visit. She tells me that she had been feeling better, she had been able to climb the stairs, however over the past couple days she did not feel too well. She was just tired. Her pain level has actually been good. Morphine was prescribed for long-acting pain control. She has been taking 30 mg b.i.d. and with that she describes her pain level to be 3-4 on 1-10 scale. Pain is mostly in her upper belly. Her bili does feel distended, but not too tight. She had been quite constipated. This stool softeners are helping.. She has some abdominal cramping. Nausea but no vomiting. She has occasional heartburn. She denies gross blood in the stools. Energy level is low. No fever nor chills. She is in good spirits. Rest of the review of systems is unremarkable Previous history: She had noted abdominal pain back in February. Ultrasound of abdomen from 09/21: -Examination limited secondary to overlying bowel gas. -Unremarkable sonographic imaging of the gallbladder. -Evaluation of the liver is suboptimal, however, there does appear to be a few focal heterogeneous masses superimposed upon heterogeneous background liver tissue. Further evaluation with MRI imaging without and with gadolinium is recommended to further evaluate these masses. Cat scan of abdomen from 09/21: IMPRESSION: Large mass in the tail of the pancreas with multiple metastasis in liver and periportal and peripancreatic and retroperitoneal lymphadenopathy. Sigmoid and rest of colon diagnosis without diverticulitis. Calcified uterine fibroid. Biopsy of the liver lesion from 10/03 revealed: Metastatic adenocarcinoma consistent with pancreatic primary. . Review of Systems - Constitutional Reports no additional constitutional complaints, Reports lack of energy, Reports malaise, Reports weakness - Eyes Reports no additional eye complaints - ENT Reports no additional ear, nose, mouth, and throat complaints - Cardiovascular Reports no additional cardiovascular complaints - Respiratory Reports no additional respiratory complaints - Gastrointestinal Reports no additional gastrointestinal complaints, Reports constipation, Reports heartburn - Genitourinary Reports no additional female genitourinary complaints - Musculoskeletal Reports no additional musculoskeletal complaints - Integumentary/Breasts Skin/Breast: Reports no additional skin complaints - Neurologic Reports no additional neurologic complaints, Reports weakness - Psychiatric Reports no additional psychiatric complaints - Endocrine Reports no additional endocrine complaints - Hematologic/Lymphatic Reports no additional hematologic/lymphatic complaints - Allergic/Immunologic Reports no additional allergic/immunologic complaints [facility] Medical History: Medical History (Last Reviewed 12/18/20 @ 10:41 by Apple Garza RN) Hyperlipemia Functional capacity: independent ambulation Family History: Family History (Last Reviewed 12/11/20 @ 11:01 by Apple Garza RN) Mother Lung cancer Surgical History: Surgical History (Last Reviewed 12/18/20 @ 10:41 by Apple Garza RN) History of back surgery Social History: Social History (Last Reviewed 12/18/20 @ 10:41 by Apple Garza RN) Living Situation History: Are you a primary healthcare management consultant to a significant other at home: No Alcohol History: Alcohol intake: never Alcohol History Details: Alcohol intake frequency: does not drink Tobacco History: Smoking Status: Never smoker Substance Use History: Use of substances other than those prescribed or required for medical reasons : No Domestic Abuse History: Have you been hit, kicked, punched, or otherwise hurt by someone within the past year? If so, by whom?: No Do you feel safe in your current relationship?: Yes Healthcare Practices: [facility] Healthcare Practices: [employer] Nutrition Assessment: Recently lost weight without trying: Yes How much weight loss: 2-13 pounds Nutrition Risks: No Nutritional Risk Patient : No : No Poor oral hygiene: No Smoking status: Never smoker Oncology Screenings - ECOG Performance Status ECOG Performance Status: 1 Home Medications and Allergies Current Medications: Current Medications Generic Name Dose Route Start Last Admin Trade Name Hansq PRN Reason Stop Dose Admin Acetaminophen 650 mg 01/15/21 00:00 01/15/21 11:08 Acetaminophen 325 Mg Tablet PO 01/15/21 23:59 650 mg ONCE LUDMILA Administration Ondansetron HCl 16 mg in 50 mls @ 200 mls/hr 11/06/20 13:00 11/06/20 13:18 Zofran IV Infused ONCE LUDMILA Infusion Ondansetron HCl 16 mg in 50 mls @ 200 mls/hr 11/20/20 12:00 11/20/20 12:24 Zofran IV Infused ONCE LUDMILA Infusion Dexamethasone Sodium Phosphate 12 mg in 50 mls @ 200 mls/hr 01/15/21 00:00 01/15/21 11:52 Decadron IV 01/15/21 23:59 Infused ONCE LUDMILA Infusion Ondansetron HCl 16 mg in 50 mls @ 200 mls/hr 01/15/21 00:00 01/15/21 11:25 Zofran IV 01/15/21 23:59 Infused ONCE LUDMILA Infusion Paclitaxel/Albumin ( 50 mls @ 100 mls/hr 01/15/21 00:00 01/15/21 12:41 Nanoparticle) 250 mg/ IV IV 01/15/21 23:59 Infused Miscellaneous Supplies ONCE LUDMILA Infusion Gemcitabine HCl 1,960 mg/ 301.548 mls @ 603.096 mls/hr 01/15/21 00:00 01/15/21 13:20 Sodium Chloride IV 01/15/21 23:59 Infused ONCE LUDMILA Infusion Home Medications Medication Instructions Recorded Confirmed Type Senna Laxative-Stool Softener 10/23/20 10/23/20 History Allergies Allergy/AdvReac Type Severity Reaction Status Date / Time No Known Allergies Allergy Verified 09/21/20 09:24 Exam Vital signs: Vital Signs Temp 97.3 F 01/15/21 09:51 Pulse 86 01/15/21 09:51 Resp 18 01/15/21 09:51 BP 103/57 L 01/15/21 09:51 Pulse Ox 93 01/15/21 09:51 Intake & Output 01/14/21 01/15/21 01/15/21 18:59 06:59 18:59 Intake Total 451.548 / 451.548 Balance 451.548 / 451.548 Intake: Intake, IV Amount 451.548 / 451.548 Gemcitabine HCl 1,960 mg In 0.9 301.548 / 301.548 % Sodium Chloride 250 ml @ 603 .096 mls/hr IV ONCE LUDMILA Rx#: [id number] PACLitaxel Protein-Bound 250 mg 50 / 50 In Container,Empty 0 ml @ 100 mls/hr IV ONCE LUDMILA Rx#: [id number] dexAMETHasone sod phosphate/NS 50 / 50 12 mg In 50 ml @ 200 mls/hr IV ONCE LUDMILA Rx#:[id number] ondansetron HCL/NS 16 mg In 50 50 / 50 ml @ 200 mls/hr IV ONCE LUDMILA Rx# :[id number] Other: Weight 78.6 kg [place] Weight in Grams 20348 Weight 78.6 kg Body Mass Index 25.5 - Constitutional Present: mild distress. Absent: no acute distress - Routine HEENT Exam Head: Present: normal inspection Eye: Present: normal appearance ENT: Present: mucous membranes moist - Routine Neck Exam Present: full ROM - Routine Respiratory Exam Present: CTAB - Routine Cardiovascular Exam Cardiovascular: Present: S1, S2 - Routine Abdominal Exam Present: firm, tenderness - Routine Rectal Exam Patient deferred: digital exam - Routine Extremities Exam Present: nontender - Routine Back/Spine/Pelvis Exam Back/Spine: Present: full ROM - Routine Skin Exam Present: intact - Routine Neurological Exam Present: alert, oriented X3 - Detailed Neurological Exam: Coma Scale Eye Opening: Spontaneous (4) - Routine Psychiatric Exam Present: normal affect Data - Labs CBC & Chem 7: 01/15/21 10:07 01/15/21 10:07 Labs: 09/22/20 10:10 Carbohydrate Antigen 19-9 Routine 09/23/20 12:30 Add Laboratory Test Routine 10/13/20 09:37 CMP [Comprehensive Met. Panel] Routine Complete Blood Count Auto Diff Routine SLIDE REVIEW Routine 10/22/20 11:43 oxyCODONE HCl Immed Release [Roxicodone] 5 mg PO ONCE ONE 10/23/20 00:00 Gemcitabine HCl [Gemzar] 2,000 mg 0.9 % Sodium Chloride [Ns] 250 ml IV ONCE PACLitaxel Protein-Bound [Abraxane] 260 mg Container,Empty 0 ml IV ONCE dexAMETHasone sod phosphate/NS [Decadron] 12 mg in 50 ml IV ONCE ondansetron HCL/NS [Zofran] 16 mg in 50 ml IV ONCE 10/23/20 10:33 Complete Blood Count Auto Diff Routine Comprehensive Met. Panel Routine 10/23/20 13:45 oxyCODONE HCl Immed Release [Roxicodone] 10 mg PO ONCE ONE 10/30/20 00:00 dexAMETHasone sod phosphate/NS [Decadron] 12 mg in 50 ml IV ONCE ondansetron HCL/NS [Zofran] 16 mg in 50 ml IV ONCE 10/30/20 09:54 Complete Blood Count Auto Diff Routine Comprehensive Met. Panel Routine 10/30/20 10:00 0.9 % Sodium Chloride [Ns] 1,000 ml IVCONT 500 mls/hr 10/30/20 10:04 Morphine Sulfate ER [MS Contin] 30 mg PO ONCE ONE 10/30/20 10:05 oxyCODONE HCl Immed Release [Roxicodone] 5 mg PO ONCE ONE 11/06/20 00:00 Acetaminophen [Tylenol] 650 mg PO ONCE Famotidine/PF [Pepcid/PF] 20 mg IVPUSH ONCE Gemcitabine HCl [Gemzar] 2,000 mg Gemcitabine HCl [Gemzar] 50 mg 0.9 % Sodium Chloride [Ns] 250 ml IV ONCE PACLitaxel Protein-Bound [Abraxane] 260 mg Container,Empty 0 ml IV ONCE dexAMETHasone sod phosphate/NS [Decadron] 12 mg in 50 ml IV ONCE diphenhydrAMINE HCL [Benadryl] 25 mg IVPUSH ONCE 11/06/20 10:30 Complete Blood Count Auto Diff Routine Comprehensive Met. Panel Routine SLIDE REVIEW Routine 11/13/20 10:16 SLIDE REVIEW Routine 11/13/20 10:16 CMP [Comprehensive Met. Panel] Routine Complete Blood Count Auto Diff Routine 11/13/20 11:00 0.9 % Sodium Chloride [Ns] 1,000 ml IV 500 mls/hr 11/20/20 00:00 Acetaminophen [Tylenol] 650 mg PO ONCE Famotidine/PF [Pepcid/PF] 20 mg IVPUSH ONCE Gemcitabine HCl [Gemzar] 2,000 mg Gemcitabine HCl [Gemzar] 50 mg 0.9 % Sodium Chloride [Ns] 250 ml IV ONCE PACLitaxel Protein-Bound [Abraxane] 260 mg Container,Empty 0 ml IV ONCE dexAMETHasone sod phosphate/NS [Decadron] 12 mg in 50 ml IV ONCE diphenhydrAMINE HCL [Benadryl] 25 mg IVPUSH ONCE 11/20/20 09:45 CMP [Comprehensive Met. Panel] Routine Complete Blood Count Auto Diff Routine 11/27/20 08:45 0.9 % Sodium Chloride [Ns] 1,000 ml IVCONT 500 mls/hr 11/27/20 09:55 CMP [Comprehensive Met. Panel] Routine Complete Blood Count Auto Diff Routine 12/04/20 10:13 Complete Blood Count Auto Diff Routine Comprehensive Met. Panel Routine Laboratory Last Values WBC 3.7 X10*3/uL (4.8-10.8) L 12/04/20 10:13 RBC 4.00 X10*6/uL (4.20-5.50) L 12/04/20 10:13 Hgb 10.1 g/dl (12.0-16.0) L 12/04/20 10:13 Hct 34.3 % (37-47) L 12/04/20 10:13 MCV 85.8 fL (80-98) 12/04/20 10:13 MCH 25.3 pg (27.0-33.0) L 12/04/20 10:13 MCHC 29.4 g/dl (31.0-35.0) L 12/04/20 10:13 RDW 19.2 % (11.0-16.0) H 12/04/20 10:13 Plt Count 300 X10*3/uL (160-400) D 12/04/20 10:13 MPV 10.1 fL (9.4-12.3) 12/04/20 10:13 Immature Gran % (Auto) 0.5 % (0.0-0.4) H 12/04/20 10:13 Neut % (Auto) 48.9 % (45-73) 12/04/20 10:13 Lymph % (Auto) 31.6 % (20-40) 12/04/20 10:13 [place] % (Auto) 17.4 % (2-11) H 12/04/20 10:13 Eos % (Auto) 0.8 % (0-4) 12/04/20 10:13 Baso % (Auto) 0.8 % (0-2) 12/04/20 10:13 Lymph # (Auto) 1.2 X10*3/uL (1.2-4.9) 12/04/20 10:13 [place] # (Auto) 0.6 X10*3/uL (0.1-1.2) 12/04/20 10:13 Eos # (Auto) 0.0 X10*3/uL (0.0-0.4) 12/04/20 10:13 Baso # (Auto) 0.0 X10*3/uL (0.0-0.2) 12/04/20 10:13 Abs Immat Gran (auto) 0.02 X10*3/uL (0.00-0.03) 12/04/20 10:13 Absolute Neuts (auto) 1.8 X10*3/uL (2.0-8.3) L 12/04/20 10:13 Absolute Nucleated RBC 0.000 X10*3/uL (0.0-0.012) 12/04/20 10:13 Nucleated RBC % (auto) 0.0 /100WBC (0.0-0.2) 12/04/20 10:13 Smear Tech's Comments VERIFIED 11/13/20 10:16 Sodium 138 mmol/L (135-145) 12/04/20 10:13 Potassium 3.5 mmol/L (3.3-5.1) 12/04/20 10:13 Chloride 100 mmol/L (96-108) 12/04/20 10:13 Carbon Dioxide 29 mmol/L (22-29) 12/04/20 10:13 Anion Gap 13 (12-20) 12/04/20 10:13 BUN 7 mg/dL (9-16) L 12/04/20 10:13 Creatinine 0.57 mg/dL (0.5-1.4) 12/04/20 10:13 Estim Creat Clear Calc 102.7 12/04/20 10:13 Estimated GFR > 60 12/04/20 10:13 Random Glucose 104 mg/dL (60-115) 12/04/20 10:13 Calcium 7.7 mg/dL (8.4-10.2) L 12/04/20 10:13 Total Bilirubin 1.1 mg/dL (0.0-1.0) H 12/04/20 10:13 AST 24 U/L (5-31) D 12/04/20 10:13 ALT 13 U/L (0-31) 12/04/20 10:13 Alkaline Phosphatase 190 U/L (39-117) H 12/04/20 10:13 Total Protein 5.4 g/dL (6.5-8.0) L 12/04/20 10:13 Albumin 2.6 g/dL (3.5-5.0) L 12/04/20 10:13 CA 19-9 Antigen 2636 U/mL (<34) H 09/21/20 10:10 Progress Note: A/P (1) Pancreatic carcinoma metastatic to liver Status: Deleted Assessment and plan: This is a pleasant unfortunate 75 year old lady with a recent diagnosis of a Pancreatic mass, adenopathy and Liver Lesions. CT scan head revealed: Large mass in the tail of the pancreas with multiple metastasis in liver and periportal and peripancreatic and retroperitoneal lymphadenopathy. Sigmoid and rest of colon diagnosis without diverticulitis. Calcified uterine fibroid. Biopsy of the liver lesions revealed pancreatic carcinoma. I went over the diagnosis, the fact that she has stage IV disease and the guarded prognosis, with her and her . I discussed the role of palliative chemotherapy. I went over the details of systemic chemotherapy. Went over the difference between FOLFIRINOX and Gemzar Abraxane. She is inclined towards chemotherapy but would still like to maintain a reasonable QOL. She opted for the latter regimen. Details of the regimen including potential side effects of nausea vomiting diarrhea, cardiopulmonary and renal toxicity, pancytopenia, risk of infection need for antibiotic blood transfusion as well as growth factors were all addressed with her and her . They were willing to proceed. She did get started on the treatment. She is tolerating it but with few side effects, fatigue and nausea. Overall she feels better. Her abdominal pain is under better control. She has been on a regular senna regimen to keep her bowels soft and moving. She has completed 3 cycles. PLAN: My plan is to re-stage her. CT scan will be done early next week. Subsequent plan will be made in the light of the results. If it shows improvement the plan is to continue her for another 3 cycles on the current regimen. Meanwhile her prescriptions for MS Contin 30 mg b.i.d. were refilled. She will keep me posted about her progress. Thanks, CC: Ann Valencia. - Time Spent With Patient Total time spent is greater than 50% in coordination of care (as documented) at patient's floor/unit and/or counseling patient: 25 - 35 minutes
[2021-01-22 09:47] VITALS: BP 125/66; PULSE 101; RESP 18; TEMP 36.6; O2SAT 97; BMI 24.5
[2021-01-22 10:33] LABS: MANUAL DIFF FLAG NO
[2021-01-22] MEDS: 0.9 % Sodium Chloride 1,000 ML 500 ML IVCONT (10:40)
[2021-01-22 10:59] LABS: Basophils Percent Auto 0.5 % (0-2); Eosinophils Percent Auto 0.3 % (0-4); Hematocrit 30.2 % (37-47); Hemoglobin 9.4 g/dl (12.0-16.0); Imm Gran Abs Auto 0.04 X10*3/uL (0.00-0.03); Imm Gran Pct Auto 0.7 % (0.0-0.4); Lymphocytes Absolute Auto 0.8 X10*3/uL (1.2-4.9); Lymphocytes Percent Auto 13.1 % (20-40); Mean Corpuscular HGB Conc 31.1 g/dl (31.0-35.0); Mean Corpuscular Hemoglobin 28.1 pg (27.0-33.0); Mean Corpuscular Volume 90.4 fL (80-98); Mean Platelet Volume 9.9 fL (9.4-12.3); Monocytes Absolute Auto 0.6 X10*3/uL (0.1-1.2); Monocytes Percent Auto 10.8 % (2-11); Neutrophils Absolute Auto 4.4 X10*3/uL (2.0-8.3); Neutrophils Percent Auto 74.6 % (45-73); Platelet Count 176 X10*3/uL (160-400); Red Blood Count 3.34 X10*6/uL (4.20-5.50); Red Cell Distribution Width 17.6 % (11.0-16.0); White Blood Count 5.9 X10*3/uL (4.8-10.8)
[2021-01-22 11:28] LABS: Alanine Aminotransferase 17 U/L (0-31); Albumin Level 2.7 g/dL (3.5-5.0); Alkaline Phosphatase 234 U/L (39-117); Anion Gap 9 (12-20); Aspartate Amino Transferase 28 U/L (5-31); Bilirubin Total 0.7 mg/dL (0.0-1.0); Blood Urea Nitrogen 7 mg/dL (9-16); Calcium 8.3 mg/dL (8.4-10.2); Carbon Dioxide 29 mmol/L (22-29); Chloride 102 mmol/L (96-108); Creatinine Clr Calc Pharmacy 87.4; Estimated Glomerular Filt Rate > 60; Glucose Random 157 mg/dL (60-115); Potassium 4.2 mmol/L (3.3-5.1); Sodium 136 mmol/L (135-145); Total Protein 5.6 g/dL (6.5-8.0)
[2021-01-29 09:48] VITALS: BP 105/61; PULSE 110; RESP 18; TEMP 36.4; O2SAT 96; BMI 24.5
[2021-01-29] MEDS: oxyCODONE HCl Immed Release 5 MG TABLET 10 MG PO (10:24)
--- NOTE | 2021-01-29 10:33 | MHC.HEMONC ---
Dr. Hillman has reviewed recent CT scan results with patient and Gallo. Patient has decided to transition from palliative care to hospice. Dr. Hillman notified eDbra Holder with [facility]. Patient complains of 7/10 abdominal pain Medicated with oxycodone 10mg PO. Emotional support provided. Patient instructed to call office with any needs. Patient verbalizes understanding.
--- NOTE | 2021-01-29 12:25 | PM.HEMONCPN ---
Medical Summary - Medical Summary Date of Service: 01/29/21 Chief complaint: Follow-up for: Pancreatic carcinoma. Medical Summary: DIAGNOSIS; PANCREATIC CA WITH LIVER METS & RETROPERITONEAL ADENOPATHY. Biopsy of the liver lesion from 10/03. Pathology revealed: Metastatic adenocarcinoma, consistent with pancreatic primary. CK7 positive CK 20- negative. CURRENT THERAPY: GEMZAR/ABRAXANE has had CYCLE 4, Day1. Interval History Interval history: Emerald Molina is a pleasant 75 year old lady, here for a follow-up visit. She tells me that she has not been feeling well over the past couple of weeks. She has had abdominal pain. She feels better laying down. But when she is up and about she has to almost bend over to get relief. Yesterday they went out for a car drive to [facility], however she had to turn and come back home because of the pain. Morphine was prescribed for long-acting pain control. She has been taking 30 mg b.i.d. and with that she describes her pain level to be 7-8 on 1-10 scale. Pain is mostly in her upper belly. Her belly does feel distended, but not too tight. She had been quite constipated. This stool softeners are helping.. She has some abdominal cramping. Nausea but no vomiting. She has occasional heartburn. She denies gross blood in the stools. She has been trying to eat 3 meals a day. She has 2 eczema toast for the breakfast. She has some soup for lunch and a reasonable dinner. No fever nor chills. She has been feeling rather fatigued and tired. Her spirits are down. Rest of the review of systems is unremarkable Previous history: She had noted abdominal pain back in February. Ultrasound of abdomen from 09/21: -Examination limited secondary to overlying bowel gas. -Unremarkable sonographic imaging of the gallbladder. -Evaluation of the liver is suboptimal, however, there does appear to be a few focal heterogeneous masses superimposed upon heterogeneous background liver tissue. Further evaluation with MRI imaging without and with gadolinium is recommended to further evaluate these masses. Cat scan of abdomen from 09/21: IMPRESSION: Large mass in the tail of the pancreas with multiple metastasis in liver and periportal and peripancreatic and retroperitoneal lymphadenopathy. Sigmoid and rest of colon diagnosis without diverticulitis. Calcified uterine fibroid. Biopsy of the liver lesion from 10/03 revealed: Metastatic adenocarcinoma consistent with pancreatic primary. . Review of Systems - Constitutional Reports system reviewed and no additional complaints, except as documented, Reports lack of energy, Reports malaise, Reports weakness, Reports weight loss - Eyes Reports system reviewed and no additional complaints, except as documented - ENT Reports system reviewed and no additional complaints, except as documented - Cardiovascular Reports system reviewed and no additional complaints, except as documented - Respiratory Reports no additional respiratory complaints - Gastrointestinal Reports system reviewed and no additional complaints, except as documented, Reports abdominal pain, Reports belching, Reports constipation, Reports feeling full early, Reports heartburn - Genitourinary Reports no additional female genitourinary complaints - Musculoskeletal Reports system reviewed and no additional complaints, except as documented - Integumentary/Breasts Skin/Breast: Reports no additional skin complaints - Neurologic Reports system reviewed and no additional complaints, except as documented, Reports weakness - Psychiatric Reports system reviewed and no additional complaints, except as documented - Endocrine Reports no additional endocrine complaints - Hematologic/Lymphatic Reports system reviewed and no additional complaints, except as documented - Allergic/Immunologic Reports system reviewed and no additional complaints, except as documented PMFSH Medical History: Medical History (Last Reviewed 12/18/20 @ 10:41 by Apple Garza RN) Hyperlipemia Functional capacity: uses cane/walker Patient : No Family History: Family History (Last Reviewed 12/11/20 @ 11:01 by Apple Garza RN) Mother Lung cancer Surgical History: Surgical History (Last Reviewed 12/18/20 @ 10:41 by Apple Garza RN) History of back surgery Social History: Social History (Last Reviewed 12/18/20 @ 10:41 by Apple Garza RN) Alcohol History: Alcohol intake: never Alcohol History Details: Alcohol intake frequency: does not drink Smoking status: Never smoker Oncology Screenings - ECOG Performance Status ECOG Performance Status: 1 Home Medications and Allergies Current Medications: Current Medications Generic Name Dose Route Start Last Admin Trade Name Freq PRN Reason Stop Dose Admin Ondansetron HCl 16 mg in 50 mls @ 200 mls/hr 11/06/20 13:00 11/06/20 13:18 Zofran IV Infused ONCE LUDMILA Infusion Ondansetron HCl 16 mg in 50 mls @ 200 mls/hr 11/20/20 12:00 11/20/20 12:24 Zofran IV Infused ONCE LUDMILA Infusion Home Medications Medication Instructions Recorded Confirmed Type Senna Laxative-Stool Softener 10/23/20 10/23/20 History Allergies Allergy/AdvReac Type Severity Reaction Status Date / Time No Known Allergies Allergy Verified 09/21/20 09:24 Exam Vital signs: Vital Signs Temp 97.5 F 01/29/21 09:48 Pulse 110 H 01/29/21 09:48 Resp 18 01/29/21 09:48 BP 105/61 01/29/21 09:48 Pulse Ox 96 01/29/21 09:48 Intake & Output 01/28/21 01/29/21 01/29/21 18:59 06:59 18:59 Other: Weight 75.5 kg Weight in Grams 34230 Weight 75.5 kg Body Mass Index 24.5 - Constitutional Present: mild distress. Absent: no acute distress - Routine HEENT Exam Head: Present: normal inspection Eye: Present: normal appearance ENT: Present: mucous membranes moist - Routine Neck Exam Present: full ROM - Routine Respiratory Exam Present: CTAB - Routine Cardiovascular Exam Cardiovascular: Present: S1, S2 - Routine Abdominal Exam Present: firm, tenderness - Routine Rectal Exam Patient deferred: digital exam - Routine Extremities Exam Present: nontender - Routine Back/Spine/Pelvis Exam Back/Spine: Present: full ROM - Routine Skin Exam Present: intact - Routine Neurological Exam Present: alert, oriented X3 - Detailed Neurological Exam: Coma Scale Eye Opening: Spontaneous (4) - Routine Psychiatric Exam Present: normal affect Data - Labs CBC & Chem 7: 01/22/21 10:33 01/22/21 10:33 Labs: 09/22/20 10:10 Carbohydrate Antigen 19-9 Routine 09/23/20 12:30 Add Laboratory Test Routine 10/13/20 09:37 CMP [Comprehensive Met. Panel] Routine Complete Blood Count Auto Diff Routine SLIDE REVIEW Routine 10/22/20 11:43 oxyCODONE HCl Immed Release [Roxicodone] 5 mg PO ONCE ONE 10/23/20 00:00 Gemcitabine HCl [Gemzar] 2,000 mg 0.9 % Sodium Chloride [Ns] 250 ml IV ONCE PACLitaxel Protein-Bound [Abraxane] 260 mg Container,Empty 0 ml IV ONCE dexAMETHasone sod phosphate/NS [Decadron] 12 mg in 50 ml IV ONCE ondansetron HCL/NS [Zofran] 16 mg in 50 ml IV ONCE 10/23/20 10:33 Complete Blood Count Auto Diff Routine Comprehensive Met. Panel Routine 10/23/20 13:45 oxyCODONE HCl Immed Release [Roxicodone] 10 mg PO ONCE ONE 10/30/20 00:00 dexAMETHasone sod phosphate/NS [Decadron] 12 mg in 50 ml IV ONCE ondansetron HCL/NS [Zofran] 16 mg in 50 ml IV ONCE 10/30/20 09:54 Complete Blood Count Auto Diff Routine Comprehensive Met. Panel Routine 10/30/20 10:00 0.9 % Sodium Chloride [Ns] 1,000 ml IVCONT 500 mls/hr 10/30/20 10:04 Morphine Sulfate ER [MS Contin] 30 mg PO ONCE ONE 10/30/20 10:05 oxyCODONE HCl Immed Release [Roxicodone] 5 mg PO ONCE ONE 11/06/20 00:00 Acetaminophen [Tylenol] 650 mg PO ONCE Famotidine/PF [Pepcid/PF] 20 mg IVPUSH ONCE Gemcitabine HCl [Gemzar] 2,000 mg Gemcitabine HCl [Gemzar] 50 mg 0.9 % Sodium Chloride [Ns] 250 ml IV ONCE PACLitaxel Protein-Bound [Abraxane] 260 mg Container,Empty 0 ml IV ONCE dexAMETHasone sod phosphate/NS [Decadron] 12 mg in 50 ml IV ONCE diphenhydrAMINE HCL [Benadryl] 25 mg IVPUSH ONCE 11/06/20 10:30 Complete Blood Count Auto Diff Routine Comprehensive Met. Panel Routine SLIDE REVIEW Routine 11/13/20 10:16 SLIDE REVIEW Routine 11/13/20 10:16 CMP [Comprehensive Met. Panel] Routine Complete Blood Count Auto Diff Routine 11/13/20 11:00 0.9 % Sodium Chloride [Ns] 1,000 ml IV 500 mls/hr 11/20/20 00:00 Acetaminophen [Tylenol] 650 mg PO ONCE Famotidine/PF [Pepcid/PF] 20 mg IVPUSH ONCE Gemcitabine HCl [Gemzar] 2,000 mg Gemcitabine HCl [Gemzar] 50 mg 0.9 % Sodium Chloride [Ns] 250 ml IV ONCE PACLitaxel Protein-Bound [Abraxane] 260 mg Container,Empty 0 ml IV ONCE dexAMETHasone sod phosphate/NS [Decadron] 12 mg in 50 ml IV ONCE diphenhydrAMINE HCL [Benadryl] 25 mg IVPUSH ONCE 11/20/20 09:45 CMP [Comprehensive Met. Panel] Routine Complete Blood Count Auto Diff Routine 11/27/20 08:45 0.9 % Sodium Chloride [Ns] 1,000 ml IVCONT 500 mls/hr 11/27/20 09:55 CMP [Comprehensive Met. Panel] Routine Complete Blood Count Auto Diff Routine 12/04/20 10:13 Complete Blood Count Auto Diff Routine Comprehensive Met. Panel Routine Laboratory Last Values WBC 3.7 X10*3/uL (4.8-10.8) L 12/04/20 10:13 RBC 4.00 X10*6/uL (4.20-5.50) L 12/04/20 10:13 Hgb 10.1 g/dl (12.0-16.0) L 12/04/20 10:13 Hct 34.3 % (37-47) L 12/04/20 10:13 MCV 85.8 fL (80-98) 12/04/20 10:13 MCH 25.3 pg (27.0-33.0) L 12/04/20 10:13 MCHC 29.4 g/dl (31.0-35.0) L 12/04/20 10:13 RDW 19.2 % (11.0-16.0) H 12/04/20 10:13 Plt Count 300 X10*3/uL (160-400) D 12/04/20 10:13 MPV 10.1 fL (9.4-12.3) 12/04/20 10:13 Immature Gran % (Auto) 0.5 % (0.0-0.4) H 12/04/20 10:13 Neut % (Auto) 48.9 % (45-73) 12/04/20 10:13 Lymph % (Auto) 31.6 % (20-40) 12/04/20 10:13 [place] % (Auto) 17.4 % (2-11) H 12/04/20 10:13 Eos % (Auto) 0.8 % (0-4) 12/04/20 10:13 Baso % (Auto) 0.8 % (0-2) 12/04/20 10:13 Lymph # (Auto) 1.2 X10*3/uL (1.2-4.9) 12/04/20 10:13 [place] # (Auto) 0.6 X10*3/uL (0.1-1.2) 12/04/20 10:13 Eos # (Auto) 0.0 X10*3/uL (0.0-0.4) 12/04/20 10:13 Baso # (Auto) 0.0 X10*3/uL (0.0-0.2) 12/04/20 10:13 Abs Immat Gran (auto) 0.02 X10*3/uL (0.00-0.03) 12/04/20 10:13 Absolute Neuts (auto) 1.8 X10*3/uL (2.0-8.3) L 12/04/20 10:13 Absolute Nucleated RBC 0.000 X10*3/uL (0.0-0.012) 12/04/20 10:13 Nucleated RBC % (auto) 0.0 /100WBC (0.0-0.2) 12/04/20 10:13 Smear Tech's Comments VERIFIED 11/13/20 10:16 Sodium 138 mmol/L (135-145) 12/04/20 10:13 Potassium 3.5 mmol/L (3.3-5.1) 12/04/20 10:13 Chloride 100 mmol/L (96-108) 12/04/20 10:13 Carbon Dioxide 29 mmol/L (22-29) 12/04/20 10:13 Anion Gap 13 (12-20) 12/04/20 10:13 BUN 7 mg/dL (9-16) L 12/04/20 10:13 Creatinine 0.57 mg/dL (0.5-1.4) 12/04/20 10:13 Estim Creat Clear Calc 102.7 12/04/20 10:13 Estimated GFR > 60 12/04/20 10:13 Random Glucose 104 mg/dL (60-115) 12/04/20 10:13 Calcium 7.7 mg/dL (8.4-10.2) L 12/04/20 10:13 Total Bilirubin 1.1 mg/dL (0.0-1.0) H 12/04/20 10:13 AST 24 U/L (5-31) D 12/04/20 10:13 ALT 13 U/L (0-31) 12/04/20 10:13 Alkaline Phosphatase 190 U/L (39-117) H 12/04/20 10:13 Total Protein 5.4 g/dL (6.5-8.0) L 12/04/20 10:13 Albumin 2.6 g/dL (3.5-5.0) L 12/04/20 10:13 CA 19-9 Antigen 2636 U/mL (<34) H 09/21/20 10:10 Progress Note: A/P (1) Pancreatic carcinoma metastatic to liver Status: Deleted Assessment and plan: This is a pleasant unfortunate 75 year old lady with a recent diagnosis of a Pancreatic mass, adenopathy and Liver Lesions. CT scan head revealed: Large mass in the tail of the pancreas with multiple metastasis in liver and periportal and peripancreatic and retroperitoneal lymphadenopathy. Sigmoid and rest of colon diagnosis without diverticulitis. Calcified uterine fibroid. Biopsy of the liver lesions revealed pancreatic carcinoma. I went over the diagnosis, the fact that she has stage IV disease and the guarded prognosis, with her and her . I discussed the role of palliative chemotherapy. I went over the details of systemic chemotherapy. Went over the difference between FOLFIRINOX and Gemzar Abraxane. She is inclined towards chemotherapy but would still like to maintain a reasonable QOL. She opted for the latter regimen. Details of the regimen including potential side effects of nausea vomiting diarrhea, cardiopulmonary and renal toxicity, pancytopenia, risk of infection need for antibiotic blood transfusion as well as growth factors were all addressed with her and her . They were willing to proceed. She did get started on the treatment. She is tolerating it but with few side effects, fatigue and nausea. Overall she feels better. Her abdominal pain is under better control. She has been on a regular senna regimen to keep her bowels soft and moving. She has completed 3 cycles. I proceeded with a CT scan to re-stage her. This was done last week and revealed: Findings of disease progression including suspected pulmonary metastatic disease, new/worsened hepatic metastases, and new and worsened retroperitoneal, periportal, and peripancreatic lymphadenopathy. Although the abnormality of the body and tail of the pancreas measures slightly smaller than on the prior study, there is a new abnormality in the neck-body junction of the pancreas consistent with worsening disease. 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 Unfortunately there has been disease progression. I shared the information with her and her in detail today. The patient felt that she new since she was going down hill. We talked about the course in guarded prognosis. We discussed option for second-line therapy with FOLFIRINOX however they are more concerned with her quality then quantity of life at this point. She does not wish to suffer unnecessarily, especially since the first-line treatment did not help. Her main concern is her pain. I tried to reassure her that I can increase the pain medicine till she is comfortable. PLAN: As far as the pain is concerned I have advised her to take oxycodone 10 mg along with MS Contin 30 in the morning and then use the oxycodone for breakthrough pain every 4 hours as needed. She can tell me in a couple days how that regimen is working. If not I can increase MS Contin up to 45 and then 60 mg for long-lasting pain control. I have requested a hospice consult. She already has palliative care so it will simply be a matter of switching over. Will see if they can provide some aircraft instrument tester is to help her with her care at home so can get a little break. Her will keep me posted about her progress. Thanks, CC: Ann Valencia. - Time Spent With Patient Total time spent is greater than 50% in coordination of care (as documented) at patient's floor/unit and/or counseling patient: 25 - 35 minutes
--- NOTE | 2021-02-11 13:59 | MHC.HEMONCSW ---
PATIENT IS NOW ON HOME HOSPICE WITH [facility]. CAME TO TALK TO ME COUNSELING PROVIDED. DAUGHTER NAY ALSO GIVEN A CONTINUOS FMLA.
== END 2021-02-24 13:57 | disposition home or self-care (01) ==
LOC: HO.ONC 10:00
PROVIDERS: PCP Nurse Practitioner Family; Visit Provider Internal Medicine Medical Oncology
DX: Z51.11 Encounter for antineoplastic chemotherapy (principal); C25.2 Malignant neoplasm of tail of pancreas; C78.7 Secondary malignant neoplasm of liver and intrahepatic bile duct; G89.3 Neoplasm related pain (acute) (chronic); Z79.891 Long term (current) use of opiate analgesic
CPT/HCPCS: 36415; 80053; 85025; 86301; 96360; 96361; 96375; 96413; 96415; 96417; 99204; 99211; 99214; J1100; J1200; J2405; J8540; J9201; J9264